=== PATIENT | female | born 1945 | race Caucasian/White ===

== ENCOUNTER 2018-11-19 11:50 | Emergency (ER) | payer MEDICARE ==
[2018-11-19 11:56] VITALS: TEMP 97.9
[2018-11-19] MEDS ORDERED: SODIUM CHLORIDE 0.9% 1,000 ML IV STA (12:11)
--- NOTE | 2018-11-19 13:08 | ED ---
General Adult HPI - General Chief complaint: Shortness of Breath Stated complaint: BLANKA/fever Time Seen by Provider: 11/19/18 12:03 Source: patient, RN notes reviewed Mode of arrival: wheelchair Limitations: no limitations - History of Present Illness Initial comments: Patient 73-year-old female presenting to the emergency room today with a chief complaint of cough congestion over the last 5 days. Patient does admit that over the weekend she was running a fever. States fever broke 2 days ago. Patient states that she still having some cough congestion. She states that she was having some production with the cough that was green. She states last day he has not been productive. She states she coughs she feels a burning sensation in her chest. Patient denies any other complaints or symptoms currently. Patient denies any recent short of breath, chest pain, back pain, abdominal pain, nausea or vomiting, numbness or tingling, headaches or visual changes, or any other complaints. - Related Data Home Medications Medication Instructions Recorded Confirmed Metoprolol Tartrate 25 mg PO BID 11/19/18 11/19/18 Simvastatin [Zocor] 20 mg PO HS 11/19/18 11/19/18 Venlafaxine HCl ER [Effexor Xr] 150 mg PO DAILY 11/19/18 11/19/18 Previous Rx's Medication Instructions Recorded Sulfamethox-Tmp 800-160Mg [Bactrim 1 tab PO Q12HR #20 tab 11/19/18 DS 800-160 mg] Allergies Allergy/AdvReac Type Severity Reaction Status Date / Time aspirin Allergy Unknown Verified 11/19/18 12:31 naproxen [From Naprosyn] Allergy Unknown Verified 11/19/18 12:31 STEROIDS Allergy Unknown Uncoded 11/19/18 11:57 Review of Systems ROS Statement: Those systems with pertinent positive or pertinent negative responses have been documented in the HPI. ROS Other: All systems not noted in ROS Statement are negative. Past Medical History Past Medical History: Hyperlipidemia, Hypertension, Renal Disease History of Any Multi-Drug Resistant Organisms: None Reported Past Surgical History: Appendectomy, Tubal Ligation Past Psychological History: Depression Smoking Status: Never smoker Past Alcohol Use History: None Reported Past Drug Use History: None Reported General Exam - General Exam Comments Initial Comments: General: The patient is awake and alert, in no distress, and does not appear acutely ill. Eye: There is normal conjunctiva bilaterally. No signs of icterus. Ears, nose, mouth and throat: There are moist mucous membranes and no oral lesions. Neck: The neck is supple, there is no tenderness or JVD. Cardiovascular: There is a regular rate and rhythm. No murmur, rub or gallop is appreciated. Respiratory: Lungs are clear to auscultation, respirations are non-labored, breath sounds are equal. No wheezes, stridor, rales, or rhonchi. Musculoskeletal: Normal ROM, no tenderness. Strength 5/5. Sensation intact. Radial/pedal Pulses equal bilaterally 2+. Neurological: A&O x 3. CN II-XII intact, There are no obvious motor or sensory deficits. Coordination appears grossly intact. Speech is normal. Skin: Skin is warm and dry and no rashes or lesions are noted. Psychiatric: Cooperative, appropriate mood & affect, normal judgment. Limitations: no limitations Course Vital Signs 11/19/18 11/19/18 11/19/18 11:53 13:08 13:15 Temperature 97.9 F Pulse Rate 99 79 Respiratory 20 16 18 Rate Blood Pressure 130/83 162/92 O2 Sat by Pulse 100 98 Oximetry EKG Findings - EKG Comments: EKG Findings:: EKG performed at 1223: Shows normal sinus rhythm at 90 bpm. ER 154. QRS 88. QT/QTC 388/474. No acute ST changes. Medical Decision Making - Medical Decision Making Patient's chest x-ray reviewed is negative for any acute abnormality. Results were discussed with the patient. Patient's EKG shows normal sinus rhythm. She has had cough congestion for the past 3 days. She describes burning sensation after she coughs in the chest. She did have some sputum production a few days ago. Patient's symptoms are consistent with bronchitis. Patient's vitals are stable here patient's labs reviewed and does show evidence for urinary tract infection. Remaining labs unremarkable. Patient will be placed on Bactrim to cover for bronchitis and UTI. Patient will be discharged home to follow-up family doctor. She states understanding and is in agreement with plan. - Lab Data Result diagrams: 11/19/18 12:52 11/19/18 12:52 Lab Results 11/19/18 11/19/18 11/19/18 Range/Units 12:52 12:52 12:52 WBC 3.5 L (3.8-10.6) k/uL RBC 5.24 (3.80-5.40) m/uL Hgb 16.0 (11.4-16.0) gm/dL Hct 48.0 H (34.0-46.0) % MCV 91.6 (80.0-100.0) fL MCH 30.5 (25.0-35.0) pg MCHC 33.3 (31.0-37.0) g/dL RDW 12.3 (11.5-15.5) % Plt Count 147 L (150-450) k/uL Neutrophils % 44 % Lymphocytes % 41 % Monocytes % 10 % Eosinophils % 2 % Basophils % 0 % Neutrophils # 1.6 (1.3-7.7) k/uL Lymphocytes # 1.5 (1.0-4.8) k/uL Monocytes # 0.4 (0-1.0) k/uL Eosinophils # 0.1 (0-0.7) k/uL Basophils # 0.0 (0-0.2) k/uL PT (9.0-12.0) sec INR (<1.2) APTT (22.0-30.0) sec Sodium 140 (137-145) mmol/L Potassium 3.9 (3.5-5.1) mmol/L Chloride 101 (98-107) mmol/L Carbon Dioxide 29 (22-30) mmol/L Anion Gap 10 mmol/L BUN 18 H (7-17) mg/dL Creatinine 1.20 H (0.52-1.04) mg/dL Est GFR (CKD-EPI)AfAm 52 (>60 ml/min/1.73 sqM) Est GFR (CKD-EPI)NonAf 45 (>60 ml/min/1.73 sqM) Glucose 90 (74-99) mg/dL Calcium 9.7 (8.4-10.2) mg/dL Total Bilirubin 0.6 (0.2-1.3) mg/dL AST 32 (14-36) U/L ALT 26 (9-52) U/L Alkaline Phosphatase 75 (38-126) U/L Total Creatine Kinase 40 (30-135) U/L CK-MB (CK-2) 0.5 (0.0-2.4) ng/mL CK-MB (CK-2) Rel Index 1.3 Troponin I <0.012 (0.000-0.034) ng/mL Total Protein 7.8 (6.3-8.2) g/dL Albumin 4.5 (3.5-5.0) g/dL Urine Color Urine Appearance (Clear) Urine pH (5.0-8.0) Ur Specific Cantil (1.001-1.035) Urine Protein (Negative) Urine Glucose (UA) (Negative) Urine Ketones (Negative) Urine Blood (Negative) Urine Nitrite (Negative) Urine Bilirubin (Negative) Urine Urobilinogen (<2.0) mg/dL Ur Leukocyte Esterase (Negative) Urine RBC (0-5) /hpf Urine WBC (0-5) /hpf Ur Squamous Epith Cells (0-4) /hpf Urine Bacteria (None) /hpf Hyaline Casts (0-2) /lpf Urine Mucus (None) /hpf 11/19/18 11/19/18 Range/Units 12:52 12:52 WBC (3.8-10.6) k/uL RBC (3.80-5.40) m/uL Hgb (11.4-16.0) gm/dL Hct (34.0-46.0) % MCV (80.0-100.0) fL MCH (25.0-35.0) pg MCHC (31.0-37.0) g/dL RDW (11.5-15.5) % Plt Count (150-450) k/uL Neutrophils % % Lymphocytes % % Monocytes % % Eosinophils % % Basophils % % Neutrophils # (1.3-7.7) k/uL Lymphocytes # (1.0-4.8) k/uL Monocytes # (0-1.0) k/uL Eosinophils # (0-0.7) k/uL Basophils # (0-0.2) k/uL PT 9.4 (9.0-12.0) sec INR 0.9 (<1.2) APTT 24.3 (22.0-30.0) sec Sodium (137-145) mmol/L Potassium (3.5-5.1) mmol/L Chloride (98-107) mmol/L Carbon Dioxide (22-30) mmol/L Anion Gap mmol/L BUN (7-17) mg/dL Creatinine (0.52-1.04) mg/dL Est GFR (CKD-EPI)AfAm (>60 ml/min/1.73 sqM) Est GFR (CKD-EPI)NonAf (>60 ml/min/1.73 sqM) Glucose (74-99) mg/dL Calcium (8.4-10.2) mg/dL Total Bilirubin (0.2-1.3) mg/dL AST (14-36) U/L ALT (9-52) U/L Alkaline Phosphatase (38-126) U/L Total Creatine Kinase (30-135) U/L CK-MB (CK-2) (0.0-2.4) ng/mL CK-MB (CK-2) Rel Index Troponin I (0.000-0.034) ng/mL Total Protein (6.3-8.2) g/dL Albumin (3.5-5.0) g/dL Urine Color Yellow Urine Appearance Cloudy H (Clear) Urine pH 5.0 (5.0-8.0) Ur Specific Cantil 1.013 (1.001-1.035) Urine Protein Trace H (Negative) Urine Glucose (UA) Negative (Negative) Urine Ketones Negative (Negative) Urine Blood Trace H (Negative) Urine Nitrite Negative (Negative) Urine Bilirubin Negative (Negative) Urine Urobilinogen <2.0 (<2.0) mg/dL Ur Leukocyte Esterase Large H (Negative) Urine RBC 5 (0-5) /hpf Urine WBC 25 H (0-5) /hpf Ur Squamous Epith Cells 5 H (0-4) /hpf Urine Bacteria Occasional H (None) /hpf Hyaline Casts 1 (0-2) /lpf Urine Mucus Rare H (None) /hpf Disposition Clinical Impression: Acute bronchitis, UTI (urinary tract infection) Disposition: HOME SELF-CARE Condition: Good Instructions: Acute Bronchitis (ED) Additional Instructions: Please use medication as discussed. Please follow-up with family doctor in the next 2 days of symptoms have not improved. Please return to emergency room if the symptoms increase or worsen or for any other concerns. Prescriptions: Sulfamethox-Tmp 800-160Mg [Bactrim DS 800-160 mg] 1 tab PO Q12HR #20 tab Is patient prescribed a controlled substance at d/c from ED?: No Referrals: Faraz Sotelo MD [Primary Care Provider] - 1-2 days Time of Disposition: 14:48
[2018-11-19 13:17] VITALS: RESP 18
--- NOTE | 2018-11-19 13:18 | XR ---
EXAMINATION TYPE: XR chest 2V DATE OF EXAM: 11/19/2018 COMPARISON: NONE HISTORY: Cough, congestion, and fever for 5 days. TECHNIQUE: Frontal and lateral views of the chest are obtained. FINDINGS: There is no focal air space opacity, pleural effusion, or pneumothorax seen. The cardiac silhouette size is within normal limits. The osseous structures are intact. IMPRESSION: No suspicious acute pulmonary process.
[2018-11-19 13:55] LABS: Basophils % (A) 0 %; Eosinophils # (A) 0.1 k/uL (0-0.7); Eosinophils % (A) 2 %; Lymphocytes # (A) 1.5 k/uL (1.0-4.8); Lymphocytes % (A) 41 %; MCH 30.5 pg (25.0-35.0); MCHC 33.3 g/dL (31.0-37.0); MCV 91.6 fL (80.0-100.0); Mean Platelet Volume 8.3; Monocytes # (A) 0.4 k/uL (0-1.0); Monocytes % (A) 10 %; Neutrophils # (A) 1.6 k/uL (1.3-7.7); Neutrophils % (A) 44 %; Platelet Count 147 k/uL (150-450); RBC 5.24 m/uL (3.80-5.40); RDW 12.3 % (11.5-15.5); WBC 3.5 k/uL (3.8-10.6)
[2018-11-19 14:02] LABS: INR 0.9 (<1.2); Prothrombin Time 9.4 sec (9.0-12.0)
[2018-11-19 14:03] LABS: Partial Thromboplastin Time 24.3 sec (22.0-30.0)
[2018-11-19 14:04] LABS: Appearance,Urine Cloudy (Clear); Bacteria,Urine Occasional /hpf; Bilirubin,Urine Negative (Negative); Blood,Urine Trace (Negative); Color,Urine Yellow; Glucose,Urine (UA) Negative (Negative); Hyaline Casts,Urine 1 /lpf (0-2); Ketones,Urine Negative (Negative); Leukocyte Esterase,Urine Large (Negative); Mucus,Urine Rare /hpf; Nitrite,Urine Negative (Negative); Protein,Urine Trace (Negative); RBC,Urine 5 /hpf (0-5); Specific Gravity,Urine 1.013 (1.001-1.035); Squamous Epithelial Cell,Urine 5 /hpf (0-4); Urobilinogen,Urine <2.0 mg/dL (<2.0)
[2018-11-19 14:20] LABS: Albumin 4.5 g/dL (3.5-5.0); Calcium 9.7 mg/dL (8.4-10.2); Potassium 3.9 mmol/L (3.5-5.1); Total Bilirubin 0.6 mg/dL (0.2-1.3); Total Protein 7.8 g/dL (6.3-8.2)
[2018-11-19 14:26] LABS: Creatine Kinase 40 U/L (30-135)
[2018-11-19 14:37] LABS: Creatine Kinase MB 0.5 ng/mL (0.0-2.4); Troponin I <0.012 ng/mL (0.000-0.034)
[2018-11-19 15:01] VITALS: BP 149/79; PULSE 77
== END 2018-11-19 14:55 | disposition home or self-care (01) ==
LOC: EC 11:50
DX: J20.9 Acute bronchitis, unspecified (principal); N39.0 Urinary tract infection, site not specified; E78.5 Hyperlipidemia, unspecified; I10 Essential (primary) hypertension; F32.9 Major depressive disorder, single episode, unspecified; Z88.6 Allergy status to analgesic agent; Z88.8 Allergy status to other drugs, medicaments and biological substances; Z79.899 Other long term (current) drug therapy; Z90.49 Acquired absence of other specified parts of digestive tract; Z98.51 Tubal ligation status
CPT/HCPCS: 36415; 71046; 80053; 81001; 82550; 82553; 84484; 85025; 85610; 85730; 87086; 93005; 96360; 99285

== ENCOUNTER → 2020-06-23 | Outpatient (CLI) | payer MEDICARE ==
[2020-06-23 13:53] LABS: HCT 41.3 % (34.0-46.0); HGB 13.2 gm/dL (11.4-16.0); MCH 30.3 pg (25.0-35.0); MCHC 31.9 g/dL (31.0-37.0); MCV 94.8 fL (80.0-100.0); Mean Platelet Volume 8.7; Platelet Count 158 k/uL (150-450); RBC 4.35 m/uL (3.80-5.40); RDW 12.2 % (11.5-15.5); WBC 6.2 k/uL (3.8-10.6)
[2020-06-23 21:06] LABS: African American GFR (CKD) 51.6 (60.0-200.0); Albumin 4.3 g/dL (3.80-4.90); Albumin/Globulin Ratio 2.05 (1.60-3.17); Anion Gap 7.9 mmol/L (4.00-12.00); BUN/Creat Ratio 19.17 Ratio (12.00-20.00); Calcium 9.9 mg/dL (8.7-10.3); Carbon Dioxide 29.1 mmol/L (21.6-31.8); Globulin 2.1 g/dL (1.6-3.3); Non-African American GFR(CKD) 44.5 (60.0-200.0); Potassium 4.9 mmol/L (3.5-5.5); Total Bilirubin 0.5 mg/dL (0.3-1.2); Total Protein 6.4 g/dL (6.2-8.2)
== END | disposition home or self-care (01) ==
LOC: LABWHC1 12:04
PROVIDERS: ATTEND Family Medicine
DX: I12.9 Hypertensive chronic kidney disease with stage 1 through stage 4 chronic kidney disease, or unspecified chronic kidney disease (principal); N18.3 Chronic kidney disease, stage 3 (moderate)
CPT/HCPCS: 36415; 80053; 83970; 85027

== ENCOUNTER 2020-07-30 12:44 | Emergency (ER) | payer MEDICARE ==
[2020-07-30 12:49] VITALS: TEMP 98
--- NOTE | 2020-07-30 13:04 | ED ---
Chest Pain HPI - General Chief Complaint: Chest Pain Stated Complaint: chest pain Time Seen by Provider: 07/30/20 12:50 Source: patient, RN notes reviewed, old records reviewed Mode of arrival: wheelchair Limitations: no limitations - History of Present Illness Initial Comments: This is a 74-year-old female with no prior history of heart disease who states she had the onset about one half hour prior to arrival sharp left-sided chest pain. Moderate in severity does not seem to get worse with deep breathing cough. She's had no fevers chills sweats or phlegm production. She states she stays in bed sleeping quite a bit. She does have a history hypertension and chronic kidney disease. Is easily to pain worse or better she does states that this morning she had heartburn like pain and when away from her upper chest on her stomach lasted for a period time and this is since resolved. She does relate that the heartburn type pain started after an cranberry use yesterday she had a burning feeling going from her throat down her stomach. 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 07/30/20 Allergies Allergy/AdvReac Type Severity Reaction Status Date / Time aspirin Allergy Unknown Verified 07/30/20 12:45 naproxen [From Naprosyn] Allergy Unknown Verified 07/30/20 12:45 STEROIDS Allergy Unknown Uncoded 07/30/20 12:45 Review of Systems ROS Statement: Those systems with pertinent positive or pertinent negative responses have been documented in the HPI. ROS Other: All systems not noted in ROS Statement are negative. EKG Findings - EKG Results: EKG: interpreted by ENEIDA, sinus rhythm (Sinus rhythm with sinus arrhythmia the rate was 81. Interval 150 to QRS 80 QT since QTC 392/[address]-T wave changes seen at this time) Past Medical History Past Medical History: Hyperlipidemia, Hypertension, Renal Disease History of Any Multi-Drug Resistant Organisms: None Reported Past Surgical History: Appendectomy, Tubal Ligation Past Psychological History: Depression Smoking Status: Never smoker Past Alcohol Use History: None Reported Past Drug Use History: None Reported General Exam - General Exam Comments Initial Comments: This is a well-developed well-nourished awake alert oriented 3 female Limitations: no limitations General appearance: alert, anxious Head exam: Present: atraumatic, normocephalic, normal inspection Eye exam: Present: normal appearance, PERRL, EOMI. Absent: scleral icterus, con junctival injection, periorbital swelling ENT exam: Present: normal exam, mucous membranes moist Neck exam: Present: normal inspection, full ROM, other (No stridor JVD or bruits). Absent: tenderness, meningismus, lymphadenopathy Respiratory exam: Present: normal lung sounds bilaterally, chest wall tenderness (Tenderness palpation on the left costosternal margin this does reproduce some of the pain that the heartburn like pain however. Is no step-off or crepitation). Absent: respiratory distress, wheezes, rales, rhonchi, stridor Cardiovascular Exam: Present: regular rate, normal rhythm, normal heart sounds. Absent: systolic murmur, diastolic murmur, rubs, gallop, clicks GI/Abdominal exam: Present: soft, normal bowel sounds. Absent: distended, tenderness, guarding, rebound, rigid Extremities exam: Present: normal inspection, full ROM, normal capillary refill. Absent: tenderness, pedal edema, joint swelling, calf tenderness Back exam: Present: normal inspection Neurological exam: Present: alert, oriented X3, CN II-XII intact Psychiatric exam: Present: normal affect, normal mood Skin exam: Present: warm, dry, intact, normal color. Absent: rash Course Vital Signs 07/30/20 12:45 Temperature 98 F Pulse Rate 98 Respiratory 18 Rate Blood Pressure 133/76 O2 Sat by Pulse 100 Oximetry - Reevaluation(s) Reevaluation #1: 07/30/20 14:29 The patient states she did get improvement with her GI cocktail. She still has reproducibility to the left chest pain. Chest Pain MDM - MDM I did review the imaging and report no acute findings. The patient is feeling improved after GI cocktail she does still have left reproducible chest pain. The presentation is consistent with costochondritis as well as esophagitis. Patient will be discharged I did recommend follow-up with her doctor. She has had prior cardiac stress test and passed some she states she'll flank color. We did discuss return parameters. Disposition Clinical Impression: Costochondritis, Chest wall syndrome, Esophagitis Disposition: HOME SELF-CARE Condition: Good Instructions (If sedation given, give patient instructions): Costochondritis (ED), Esophagitis (ED) Additional Instructions: Tylenol for pain Prescriptions: Pantoprazole Sodium [Protonix] 20 mg PO DAILY #7 tablet.dr Is patient prescribed a controlled substance at d/c from ED?: No Referrals: Faraz Sotelo MD [Primary Care Provider] - 1-2 days
[2020-07-30 13:20] LABS: Basophils % (A) 0 %; Eosinophils # (A) 0.3 k/uL (0-0.7); Eosinophils % (A) 5 %; HCT 42.7 % (34.0-46.0); HGB 14.1 gm/dL (11.4-16.0); Lymphocytes # (A) 1.8 k/uL (1.0-4.8); Lymphocytes % (A) 33 %; MCH 30.6 pg (25.0-35.0); MCHC 33.1 g/dL (31.0-37.0); MCV 92.4 fL (80.0-100.0); Mean Platelet Volume 8.4; Monocytes # (A) 0.3 k/uL (0-1.0); Monocytes % (A) 5 %; Neutrophils % (A) 56 %; Platelet Count 153 k/uL (150-450); RBC 4.62 m/uL (3.80-5.40); RDW 12.2 % (11.5-15.5); WBC 5.4 k/uL (3.8-10.6)
[2020-07-30 13:28] LABS: Albumin 4.1 g/dL (3.5-5.0); Calcium 10.2 mg/dL (8.4-10.2); Potassium 4.6 mmol/L (3.5-5.1); Total Bilirubin 0.5 mg/dL (0.2-1.3); Total Protein 6.5 g/dL (6.3-8.2)
[2020-07-30 13:32] LABS: D-Dimer 0.38 mg/L FEU (<0.60); INR 0.9 (<1.2); Partial Thromboplastin Time 23.1 sec (22.0-30.0); Prothrombin Time 9.7 sec (9.0-12.0)
--- NOTE | 2020-07-30 13:34 | XR ---
EXAMINATION TYPE: XR chest 2V DATE OF EXAM: 07/30/2020 COMPARISON: 11/19/2018 HISTORY: 74-year-old female with chest pain TECHNIQUE: PA and lateral views FINDINGS: The cardiomediastinal silhouette, aorta, and pulmonary vasculature are within normal limits. Lungs an d pleural spaces are clear. IMPRESSION: No acute cardiopulmonary process.
[2020-07-30] MEDS ORDERED: MAG HYDROX/AL HYDROX/SIMETH 30 ML, HYOSCYAMINE ELIXIR 10 ML PO STA ×2 (14:06)
[2020-07-30] MEDS ORDERED: PANTOPRAZOLE 40 MG TABLET PO STA (14:33)
[2020-07-30] MEDS ORDERED: ACETAMINOPHEN TAB 500 MG TAB PO STA (14:33)
[2020-07-30 15:15] VITALS: BP 138/70; PULSE 80; RESP 16
== END 2020-07-30 15:15 | disposition home or self-care (01) ==
LOC: EC 12:44
DX: M94.0 Chondrocostal junction syndrome [Tietze] (principal); K20.9 Esophagitis, unspecified; I12.9 Hypertensive chronic kidney disease with stage 1 through stage 4 chronic kidney disease, or unspecified chronic kidney disease; N18.9 Chronic kidney disease, unspecified; E78.5 Hyperlipidemia, unspecified; F32.9 Major depressive disorder, single episode, unspecified; Z79.899 Other long term (current) drug therapy; Z88.8 Allergy status to other drugs, medicaments and biological substances; Z88.6 Allergy status to analgesic agent
CPT/HCPCS: 36415; 71046; 80053; 82550; 83735; 83880; 84484; 85025; 85379; 85610; 85730; 93005; 99285

== ENCOUNTER → 2021-02-10 | Outpatient (CLI) | payer MEDICARE ==
[2021-02-10 16:28] LABS: Appearance,Urine Clear (Clear); Bacteria,Urine Rare /hpf; Bilirubin,Urine Negative (Negative); Blood,Urine Negative (Negative); Color,Urine Light Yellow; Glucose,Urine (UA) Negative (Negative); Ketones,Urine Negative (Negative); Leukocyte Esterase,Urine Moderate (Negative); Nitrite,Urine Negative (Negative); Protein,Urine Negative (Negative); RBC,Urine <1 /hpf (0-5); Specific Gravity,Urine 1.006 (1.001-1.035); Squamous Epithelial Cell,Urine 3 /hpf (0-4); Urobilinogen,Urine <2.0 mg/dL (<2.0); WBC,Urine 1 /hpf (0-5)
[2021-02-11 03:50] LABS: African American GFR (CKD) 51.2 (60.0-200.0); Albumin 4.8 g/dL (3.80-4.90); Albumin/Globulin Ratio 2.29 (1.60-3.17); BUN/Creat Ratio 19.17 Ratio (12.00-20.00); Calcium 10.4 mg/dL (8.7-10.3); Chol/HDL Ratio 3.07; Globulin 2.1 g/dL (1.6-3.3); LDL Cholesterol,Calculated 84.4 mg/dL (0.0-131.0); Non-African American GFR(CKD) 44.2 (60.0-200.0); Potassium 4.6 mmol/L (3.5-5.5); Total Bilirubin 0.8 mg/dL (0.2-1.2); Total Protein 6.9 g/dL (6.2-8.2); VLDL Calculation 29.6 mg/dL (5.00-40.00)
== END | disposition home or self-care (01) ==
LOC: LABWHC1 15:22
PROVIDERS: ATTEND Family Medicine
DX: I12.9 Hypertensive chronic kidney disease with stage 1 through stage 4 chronic kidney disease, or unspecified chronic kidney disease (principal); N18.30 Chronic kidney disease, stage 3 unspecified; R82.90 Unspecified abnormal findings in urine
CPT/HCPCS: 36415; 80053; 80061; 81001; 83970; 87086

== ENCOUNTER → 2022-05-10 | Outpatient (CLI) | payer MEDICARE ==
[2022-05-10 19:31] LABS: HCT 43.6 % (37.2-46.3); HGB 13.8 g/dL (12.0-15.0); MCH 29.2 pg (27.0-32.0); MCHC 31.7 g/dL (32.0-37.0); MCV 92.2 fL (80.0-97.0); Mean Platelet Volume 11.7 fL (9.5-12.2); NRBC Per 100 WBC 0 /100 WBCS (0.0-0.0); Phosphorus 3.1 mg/dL (2.4-5.1); Platelet Count 192 X 10*3/uL (140-440); RBC 4.73 X 10*6/uL (4.10-5.20); RDW 11.8 % (11.5-14.5); WBC 6.44 X 10*3/uL (4.50-10.00)
== END | disposition home or self-care (01) ==
LOC: LABWHC1 13:33
PROVIDERS: ATTEND Family Medicine
DX: E78.01 Familial hypercholesterolemia (principal)
CPT/HCPCS: 36415; 82306; 83970; 84100; 84443; 85027

== ENCOUNTER 2022-08-17 02:03 | Inpatient (IN) | payer MEDICARE ==
[2022-08-17] MEDS ORDERED: SODIUM CHLORIDE 0.9% 1,000 ML IV STA (02:05)
--- NOTE | 2022-08-17 02:37 | CT ---
EXAMINATION TYPE: CT brain wo con for TPA DATE OF EXAM: 08/17/2022 COMPARISON: None HISTORY: LEFT SIDED WEAKNESS CT DLP: 1475 mGycm Automated exposure control for dose reduction was used. Images obtained of the brain with no contrast. Ventricles have normal size. There is no mass effect or midline shift. No sign of intracranial hemorr rain. Calvarium is intact. No evidence of cerebral edema. IMPRESSION: Head CT scan appears normal for age.
[2022-08-17 02:38] LABS: Glucose,Whole Blood 138 mg/dL (70-110)
--- NOTE | 2022-08-17 02:39 | XR ---
EXAMINATION TYPE: XR chest 1V portable DATE OF EXAM: 08/17/2022 COMPARISON: 07/30/2020 HISTORY: Altered mental status TECHNIQUE: FINDINGS: Heart is normal. Lungs are clear of infiltrate. No heart failure. There are no hilar masses . Costophrenic angles are clear. Bony thorax is intact. IMPRESSION: No active cardiopulmonary disease. Normal heart. No change.
[2022-08-17] MEDS ORDERED: SODIUM CHLORIDE 0.9% 1,000 ML IV SCH (02:45)
[2022-08-17] MEDS: ASPIRIN 325 MG TAB PO STA ×2 (02:45→02:50)
--- NOTE | 2022-08-17 02:45 | ED ---
General Adult HPI - General Stated complaint: Alteplase Time Seen by Provider: 08/17/22 02:05 Source: patient, EMS, RN notes reviewed, old records reviewed Limitations: no limitations - History of Present Illness Initial comments: 76-year-old female presenting with acute onset left-sided weakness. Patient apparently had speech abnormality upon urban sociologist arrival but this has resolved. Her symptoms began around 1:30 AM with wake up. She went to bed at 10 PM this was her last known well. no previous history of CVA or TIA. - Related Data Home Medications Medication Instructions Recorded Confirmed Metoprolol Tartrate 25 mg PO BID 11/19/18 07/30/20 Simvastatin [Zocor] 20 mg PO HS 11/19/18 07/30/20 Venlafaxine HCl ER [Effexor Xr] 150 mg PO DAILY 11/19/18 07/30/20 Acetaminophen Tab [Tylenol Tab] 1,000 mg PO Q6HR PRN 07/30/20 07/30/20 Previous Rx's Medication Instructions Recorded Pantoprazole Sodium [Protonix] 20 mg PO DAILY #7 tablet. 07/30/20 Allergies Allergy/AdvReac Type Severity Reaction Status Date / Time aspirin Allergy Unknown Verified 07/30/20 14:37 naproxen [From Naprosyn] Allergy Unknown Verified 07/30/20 14:37 STEROIDS Allergy Unknown Uncoded 07/30/20 12:45 Review of Systems ROS Statement: Those systems with pertinent positive or pertinent negative responses have been documented in the HPI. ROS Other: All systems not noted in ROS Statement are negative. Past Medical History Past Medical History: Hyperlipidemia, Hypertension, Renal Disease History of Any Multi-Drug Resistant Organisms: None Reported Past Surgical History: Appendectomy, Tubal Ligation Past Psychological History: Depression Smoking Status: Never smoker Past Alcohol Use History: None Reported Past Drug Use History: None Reported General Exam General appearance: alert, in no apparent distress Head exam: Present: atraumatic, normocephalic Eye exam: Present: normal appearance, PERRL ENT exam: Present: normal exam Neck exam: Present: normal inspection. Absent: tenderness, meningismus Respiratory exam: Present: normal lung sounds bilaterally. Absent: respiratory distress, wheezes Cardiovascular Exam: Present: regular rate, normal rhythm GI/Abdominal exam: Present: soft. Absent: distended, tenderness Extremities exam: Present: normal inspection, normal capillary refill. Absent: pedal edema Neurological exam: Present: alert, oriented X3, motor sensory deficit (left facial droop, left upper extremity drift, NIH is 4). Absent: CN II-XII intact Psychiatric exam: Present: normal affect, normal mood Skin exam: Present: warm, dry, intact Course Vital Signs 08/17/22 02:03 Temperature 97.8 F Respiratory 18 Rate Blood Pressure 138/87 O2 Sat by Pulse 100 Oximetry - Reevaluation(s) Reevaluation #1: 08/17/22 04:01 patient reevaluated, NIH of 1 Reevaluation #2: 08/17/[address] Cope, not a TPA candidate secondary to low NIH, improving symptoms. this was discussed at 4 hours and 35 minutes after last known well. EKG Findings - EKG Comments: EKG Findings:: EKG: Sinus rhythm, low voltage, rate of 89, NM interval 161, QRS duration 82, QTC 416 Medical Decision Making - Medical Decision Making 76-year-old female with symptoms concerning for acute CVA. Head CT and CT angiography are negative. Laboratory testing is essentially unremarkable. Patient is not a TPA candidate secondary to low NIH and improving symptoms. The stroke neurologist recommends aspirin, statin and permissive hypertension. Patient's symptoms do significantly improve while in the emergency department. - Lab Data Result diagrams: 08/17/22 02:30 08/17/22 02:30 Lab Results 08/17/22 08/17/22 08/17/22 Range/Units 02:30 02:30 02:30 WBC 4.9 (3.8-10.6) k/uL RBC 4.39 (3.80-5.40) m/uL Hgb 13.1 (11.4-16.0) gm/dL Hct 41.4 (34.0-46.0) % MCV 94.2 (80.0-100.0) fL MCH 29.8 (25.0-35.0) pg MCHC 31.6 (31.0-37.0) g/dL RDW 12.4 (11.5-15.5) % Plt Count 150 (150-450) k/uL MPV 8.6 Neutrophils % 63 % Lymphocytes % 25 % Monocytes % 7 % Eosinophils % 2 % Basophils % 1 % Neutrophils # 3.1 (1.3-7.7) k/uL Lymphocytes # 1.2 (1.0-4.8) k/uL Monocytes # 0.4 (0-1.0) k/uL Eosinophils # 0.1 (0-0.7) k/uL Basophils # 0.0 (0-0.2) k/uL PT 10.5 (9.0-12.0) sec INR 1.0 (<1.2) APTT 22.8 (22.0-30.0) sec Sodium 137 (137-145) mmol/L Potassium 4.2 (3.5-5.1) mmol/L Chloride 103 (98-107) mmol/L Carbon Dioxide 24 (22-30) mmol/L Anion Gap 10 mmol/L BUN 24 H (7-17) mg/dL Creatinine 1.22 H (0.52-1.04) mg/dL Est GFR (CKD-EPI)AfAm 50 (>60 ml/min/1.73 sqM) Est GFR (CKD-EPI)NonAf 43 (>60 ml/min/1.73 sqM) Glucose 126 H (74-99) mg/dL POC Glucose (mg/dL) (70-110) mg/dL POC Glu Hydrochloric Area Supervisor ID Calcium 9.6 (8.4-10.2) mg/dL Total Bilirubin 0.4 (0.2-1.3) mg/dL AST 21 (14-36) U/L ALT 12 (4-34) U/L Alkaline Phosphatase 94 (38-126) U/L Troponin I (0.000-0.034) ng/mL Total Protein 6.1 L (6.3-8.2) g/dL Albumin 3.7 (3.5-5.0) g/dL 08/17/22 08/17/22 Range/Units 02:30 02:36 WBC (3.8-10.6) k/uL RBC (3.80-5.40) m/uL Hgb (11.4-16.0) gm/dL Hct (34.0-46.0) % MCV (80.0-100.0) fL MCH (25.0-35.0) pg MCHC (31.0-37.0) g/dL RDW (11.5-15.5) % Plt Count (150-450) k/uL MPV Neutrophils % % Lymphocytes % % Monocytes % % Eosinophils % % Basophils % % Neutrophils # (1.3-7.7) k/uL Lymphocytes # (1.0-4.8) k/uL Monocytes # (0-1.0) k/uL Eosinophils # (0-0.7) k/uL Basophils # (0-0.2) k/uL PT (9.0-12.0) sec INR (<1.2) APTT (22.0-30.0) sec Sodium (137-145) mmol/L Potassium (3.5-5.1) mmol/L Chloride (98-107) mmol/L Carbon Dioxide (22-30) mmol/L Anion Gap mmol/L BUN (7-17) mg/dL Creatinine (0.52-1.04) mg/dL Est GFR (CKD-EPI)AfAm (>60 ml/min/1.73 sqM) Est GFR (CKD-EPI)NonAf (>60 ml/min/1.73 sqM) Glucose (74-99) mg/dL POC Glucose (mg/dL) 138 H (70-110) mg/dL POC Glu Hydrochloric Area Supervisor ID Patricio Hernandez Calcium (8.4-10.2) mg/dL Total Bilirubin (0.2-1.3) mg/dL AST (14-36) U/L ALT (4-34) U/L Alkaline Phosphatase (38-126) U/L Troponin I <0.012 (0.000-0.034) ng/mL Total Protein (6.3-8.2) g/dL Albumin (3.5-5.0) g/dL Critical Care Time Critical Care Time: Yes Total Critical Care Time: 35 Disposition Clinical Impression: Cerebrovascular accident (CVA) Disposition: ADMITTED IP TO THIS HOSP Condition: Stable Is patient prescribed a controlled substance at d/c from ED?: No Referrals: None,Stated [REFERRING] - 1-2 days Time of Disposition: 04:03
--- NOTE | 2022-08-17 02:46 | CT ---
EXAMINATION TYPE: CT angio head neck DATE OF EXAM: 08/17/2022 COMPARISON: None HISTORY: LEFT SIDED WEAKNESS. CT DLP: 1475 mGycm Automated exposure control for dose reduction was used. CONTRAST: Performed with IV Contrast, patient injected with 65 mL of Isovue 370. Images obtained from the aortic arch to the vertex of the brain with the IV contrast. There are Three-D postprocessed images. There is normal branching pattern of the great vessels on the aortic arch. There is bilateral arteria l flow in the subclavian arteries. There is arterial flow in the common internal and external cardiac arteries bilaterally. There is wide patency of the carotid artery bifurcations. There is arterial fl ow in both vertebral arteries which appear widely patent there is arterial flow in the vertebrobasila r artery system. There is no evidence of carotid or vertebral artery aneurysm or dissection. There is arterial flow in the anterior middle and posterior cerebral arteries bilaterally. There is n o mass effect. No evidence of intracranial aneurysm or neovascularity. No evidence of intracranial ar terial stenosis. There is normal enhancement of the venous sinuses. IMPRESSION: Normal CT angiogram of the neck. Normal CT angiogram of the brain.
[2022-08-17 02:48] LABS: Basophils % (A) 1 %; Eosinophils # (A) 0.1 k/uL (0-0.7); Eosinophils % (A) 2 %; HCT 41.4 % (34.0-46.0); HGB 13.1 gm/dL (11.4-16.0); Lymphocytes # (A) 1.2 k/uL (1.0-4.8); Lymphocytes % (A) 25 %; MCH 29.8 pg (25.0-35.0); MCHC 31.6 g/dL (31.0-37.0); MCV 94.2 fL (80.0-100.0); Mean Platelet Volume 8.6; Monocytes # (A) 0.4 k/uL (0-1.0); Monocytes % (A) 7 %; Neutrophils # (A) 3.1 k/uL (1.3-7.7); Neutrophils % (A) 63 %; Platelet Count 150 k/uL (150-450); RBC 4.39 m/uL (3.80-5.40); RDW 12.4 % (11.5-15.5); WBC 4.9 k/uL (3.8-10.6)
[2022-08-17 03:00] LABS: Albumin 3.7 g/dL (3.5-5.0); Calcium 9.6 mg/dL (8.4-10.2); Potassium 4.2 mmol/L (3.5-5.1); Total Bilirubin 0.4 mg/dL (0.2-1.3); Total Protein 6.1 g/dL (6.3-8.2)
[2022-08-17 03:29] LABS: Partial Thromboplastin Time 22.8 sec (22.0-30.0); Prothrombin Time 10.5 sec (9.0-12.0)
[2022-08-17] MEDS ORDERED: ASPIRIN 300 MG SUPP RECTAL STA (03:44)
[2022-08-17] MEDS ORDERED: ASPIRIN 300 MG SUPP RECTAL SCH (09:00)
--- NOTE | 2022-08-17 11:18 | P.HPIM ---
History of Present Illness Patient is a 76-year-old female came in with comments of left sided weakness was started last night she woke up from sleep around her 2 AM found to have weakness in the left and slurred speech and deviation of the tongue 2 words left side. Patient to denied any previous history of strokes or heart attacks in the past. Patient has some numbness in the left arm as well denied any weakness in the left leg. Patient states that aspirin makes her have some upset although at that time patient was taking it for pain and and it was in combination with other pain pills. Patient denied any fever chills. Patient given an hour after she notices the symptoms but onset of symptoms is not known as this may have happened when she is sleeping because of which patient didn't receive TPA patient had a CT of the head and CT angiography head and neck which did not show any significant abnormality. Patient does have chronic kidney disease with baseline creatinine of around 1.2-1.4. Patient did have slurred speech as well REVIEW OF SYSTEMS: CONSTITUTIONAL: No fever, no malaise, no fatigue. HEENT: No recent visual problems or hearing problems. Denied any sore throat. CARDIOVASCULAR: No chest pain, orthopnea, PND, no palpitations, no syncope. PULMONARY: No shortness of breath, no cough, no hemoptysis. GASTROINTESTINAL: No diarrhea, no nausea, no vomiting, no abdominal pain. NEUROLOGICAL: No headaches. HEMATOLOGICAL: Denies any bleeding or petechiae. GENITOURINARY: Denies any burning micturition, frequency, or urgency. MUSCULOSKELETAL/RHEUMATOLOGICAL: Denies any joint pain, swelling, or any muscle pain. ENDOCRINE: Denies any polyuria or polydipsia. The rest of the 14-point review of systems is negative. PHYSICAL EXAMINATION: GENERAL: The patient is alert and oriented x3, not in any acute distress. Well developed, well nourished. HEENT: Pupils are round and equally reacting to light. EOMI. No scleral icterus. No conjunctival pallor. Normocephalic, atraumatic. No pharyngeal erythema. No thyromegaly. CARDIOVASCULAR: S1 and S2 present. No murmurs, rubs, or gallops. PULMONARY: Chest is clear to auscultation, no wheezing or crackles. ABDOMEN: Soft, nontender, nondistended, normoactive bowel sounds. No palpable organomegaly. MUSCULOSKELETAL: No joint swelling or deformity. EXTREMITIES: No cyanosis, clubbing, or pedal edema. NEUROLOGICAL: 4/5 strength in left upper extremity there is a tongue deviation towards left side and also facial droop towards right side and slurred speech SKIN: No rashes. Assessment and plan -Cerebrovascular accident involving the left-sided of the body, in the middle cerebral artery territory , superolateral surface of the brain, in the parietofrontal cortex ischemic in origin. Neurology will evaluate the patient patient will be started on aspirin will need another platelet, lipid panel is pending echocardiogram, MRI of pending CT of the head and neck as mentioned above. Physical therapy, occupational therapy consultation along with see speech therapy evaluation -Chronic kidney disease stage II probably hypertensive nephrosclerosis, her creatinine is at her baseline. -Hyperlipidemia DVT prophylaxis: Early ambulation Past Medical History Past Medical History: Hyperlipidemia, Hypertension, Renal Disease History of Any Multi-Drug Resistant Organisms: None Reported Past Surgical History: Appendectomy, Tubal Ligation Past Psychological History: Depression Smoking Status: Never smoker Past Alcohol Use History: None Reported Past Drug Use History: None Reported Medications and Allergies Home Medications Medication Instructions Recorded Confirmed Type Metoprolol Tartrate 25 mg PO HS 11/19/18 08/17/22 History Simvastatin [Zocor] 20 mg PO HS 11/19/18 08/17/22 History Venlafaxine HCl ER [Effexor Xr] 150 mg PO HS 11/19/18 08/17/22 History Venlafaxine HCl ER [Effexor Xr] 75 mg PO HS 08/17/22 08/17/22 History Allergies Allergy/AdvReac Type Severity Reaction Status Date / Time aspirin Allergy Unknown Verified 08/17/22 07:31 naproxen [From Naprosyn] Allergy Unknown Verified 08/17/22 07:31 STEROIDS Allergy Unknown Uncoded 08/17/22 07:31 Physical Exam Vitals: Vital Signs Temp Pulse Resp BP Pulse Ox 08/17/22 10:00 79 15 161/80 08/17/22 09:30 76 15 164/76 08/17/22 08:30 78 16 151/72 100 08/17/22 08:00 74 15 153/83 99 08/17/22 07:30 75 16 154/88 99 08/17/22 07:00 69 15 158/71 100 08/17/22 06:30 76 160/75 99 08/17/22 06:20 80 160/75 99 08/17/22 06:10 68 150/72 99 08/17/22 06:00 96 150/73 100 08/17/22 05:50 90 150/73 98 08/17/22 05:40 76 144/73 99 08/17/22 05:30 74 156/78 99 08/17/22 05:20 81 156/78 98 08/17/22 05:10 74 158/64 100 08/17/22 05:00 82 166/79 100 08/17/22 04:50 92 18 166/79 100 08/17/22 04:40 73 8 L 171/84 100 08/17/22 04:30 82 12 167/84 98 08/17/22 04:20 92 18 167/84 100 08/17/22 04:11 82 23 150/83 100 08/17/22 02:03 97.8 F 18 138/87 100 Intake and Output 08/16/22 08/17/22 08/17/22 22:59 06:59 14:59 Other: Weight 73.113 kg Results CBC & Chem 7: 08/17/22 02:30 08/17/22 02:30 Labs: Abnormal Lab Results - Last 24 Hours (Table) 08/17/22 08/17/22 Range/Units 02:30 02:36 BUN 24 H (7-17) mg/dL Creatinine 1.22 H (0.52-1.04) mg/dL Glucose 126 H (74-99) mg/dL POC Glucose (mg/dL) 138 H (70-110) mg/dL Total Protein 6.1 L (6.3-8.2) g/dL
--- NOTE | 2022-08-17 12:28 | CA ---
Transthoracic Echo Report Name: Germania Gregorio Age: 76 Gender: F : 1945 Exam Date: 08/17/2022 10:06 Exam Location: [facility] Ht (in): 60 Wt (lb): 161 Ordering Physician: Lauri Donald MD Attending/Referring Phys: [id number], Odilon Nylon Winder Daniela Wadsworth, JOHN Procedure CPT: Indications: Thrombus Cardiac Hx: Technical Quality: Fair Contrast 1: Total Dose (mL): Contrast 2: Total Dose (mL): MEASUREMENTS (Male / Female) Normal Values 2D ECHO LV Diastolic Diameter PLAX 3.9 cm 4.2 - 5.9 / 3.9 - 5.3 cm LV Systolic Diameter PLAX 2.5 cm IVS Diastolic Thickness 1.0 cm 0.6 - 1.0 / 0.6 - 0.9 cm LVPW Diastolic Thickness 0.9 cm 0.6 - 1.0 / 0.6 - 0.9 cm LV Relative Wall Thickness 0.5 RV Internal Dim ED PLAX 2.7 cm LA Systolic Diameter LX 3.1 cm 3.0 - 4.0 / 2.7 - 3.8 cm LA Volume 29.1 cm??? 18 - 58 / 22 - 52 cm??? M-MODE Aortic Root Diameter MM 2.7 cm MV E Point Septal Separation 0.5 cm AV Cusp Separation MM 1.9 cm DOPPLER AV Peak Velocity 123.2 cm/s AV Peak Gradient 6.1 mmHg MV Area PHT 3.4 cm??? Mitral E Point Velocity 72.9 cm/s Mitral A Point Velocity 104.7 cm/s Mitral E to A Ratio 0.7 MV Deceleration Time 224.7 ms MV E' Velocity 7.6 cm/s Mitral E to MV E' Ratio 9.6 FINDINGS Left Ventricle Left ventricular ejection fraction is estimated at 55-60 %. Left ventricular cavity size normal. Left ventricular wall thickness normal. Right Ventricle Normal right ventricular size and function. Unable to estimate the right ventricular systolic pressure. Right Atrium Normal right atrial size. Left Atrium Normal left atrial size. No evidence for an atrial septal defect. Mitral Valve Structurally normal mitral valve. No mitral stenosis, regurgitation or prolapse. Aortic Valve Aortic valve not well visualized. No aortic valve stenosis or regurgitation. Tricuspid Valve Structurally normal tricuspid valve. No tricuspid stenosis, regurgitation or prolapse. Pulmonic Valve Pulmonic valve not well visualized. Pericardium Normal pericardium. No pericardial effusion. Aorta Normal size aortic root and proximal ascending aorta. CONCLUSIONS Normal LV systolic function Previewed by: Dr. Hadley Stafford MD (Electronically Signed) Final Date: 17 August 2022 12:27
--- NOTE | 2022-08-17 14:25 | P.CNNES ---
History of Present Illness Consult date: 08/17/22 Requesting physician: Lauri Donald Reason for Consult: cva History of Present Illness: This is a 76 year-old woman with medical history of hypertension, hyperlipidemia who presented to the emergency department with left upper extremity weakness and slurred speech. It seems that the patient the had left-sided weakness with slurred speech.and she stated that his symptoms began around 1:30 AM when she woke up on the 08/17/2022. She went to bed around 10 PM. She felt her slurred speech has resolved but continues to have left upper extremity weakness. She also feels left upper extremity is numb. She denies of any new neurological issues. She presented to our facility at around 2:02AM today. She had remote history of TIA and felt she was unsteady walking and was told she had TIA. She is on simvastatin 20 motor daily at bedtime. Patient is not on any antiplatelets or anticoagulation. Patient has ALLERGY to aspirin. Some of the workup during this hospital visit consisted of: CBC with differential is unremarkable Creatinine is 1.22 and the BUN is 24. Initial serum glucose is 126. AST and ALT is within normal limits CT of the head is reported as normal. CT angiography of the head and neck was reported as normal. Stroke code was activated and the per the ED note no IV TPA because of low NIH and improving symptoms. Also No IV tpa since the risk outweigh the benefit. Per the ED team the stroke neurologist recommended aspirin stat in the permissive hypertension. EKG is reported as sinus rhythm. Low QRS voltage in the precordial leads. Borderline EKG. 2-D echo was reported as normal left ventricular systolic function. Left atrium is normal in the body reported. No evidence for atrial septal defect. Review of Systems Review of system: The 12 point system was reviewed and apparent positive and negative per HPI. Past Medical History Past Medical History: Hyperlipidemia, Hypertension, Renal Disease History of Any Multi-Drug Resistant Organisms: None Reported Past Surgical History: Appendectomy, Tubal Ligation Past Psychological History: Depression Smoking Status: Never smoker Past Alcohol Use History: None Reported Past Drug Use History: None Reported Medications and Allergies Home Medications Medication Instructions Recorded Confirmed Type Metoprolol Tartrate 25 mg PO HS 11/19/18 08/17/22 History Simvastatin [Zocor] 20 mg PO HS 11/19/18 08/17/22 History Venlafaxine HCl ER [Effexor Xr] 150 mg PO HS 11/19/18 08/17/22 History Venlafaxine HCl ER [Effexor Xr] 75 mg PO HS 08/17/22 08/17/22 History Allergies Allergy/AdvReac Type Severity Reaction Status Date / Time aspirin Allergy Unknown Verified 08/17/22 07:31 naproxen [From Naprosyn] Allergy Unknown Verified 08/17/22 07:31 STEROIDS Allergy Unknown Uncoded 08/17/22 07:31 Physical Examination - Vital Signs Vital Signs: Vital Signs Temp Pulse Pulse Resp BP BP Pulse Ox 08/17/22 11:00 16 08/17/22 10:35 98.0 F 83 16 177/77 97 08/17/22 10:00 79 15 161/80 08/17/22 09:30 76 15 164/76 08/17/22 08:30 78 16 151/72 100 08/17/22 08:00 74 15 153/83 99 08/17/22 07:30 75 16 154/88 99 08/17/22 07:00 69 15 158/71 100 08/17/22 06:30 76 160/75 99 08/17/22 06:20 80 160/75 99 08/17/22 06:10 68 150/72 99 08/17/22 06:00 96 150/73 100 08/17/22 05:50 90 150/73 98 08/17/22 05:40 76 144/73 99 08/17/22 05:30 74 156/78 99 08/17/22 05:20 81 156/78 98 08/17/22 05:10 74 158/64 100 08/17/22 05:00 82 166/79 100 08/17/22 04:50 92 18 166/79 100 08/17/22 04:40 73 8 L 171/84 100 08/17/22 04:30 82 12 167/84 98 08/17/22 04:20 92 18 167/84 100 08/17/22 04:11 82 23 150/83 100 08/17/22 02:03 97.8 F 18 138/87 100 Intake and Output 08/16/22 08/17/22 08/17/22 22:59 06:59 14:59 Other: Voiding Method Toilet # Voids 1 Weight 73.113 kg 73.113 kg GENERAL: The patient is lying in bed and is not in acute distress. CHEST: The heart rate is regular rate rhythm. No murmurs to auscultation. LUNG: Clear to auscultation bilaterally no wheezing noted throughout. Not labored breathing. ABDOMEN/GI: Bowel sounds present in all 4 quadrants. No tenderness to palpation throughout. NEUROLOGICAL: Higher mental function: The patient is awake, alert, oriented to self, place and time. Patient is following commands. No aphasia and no neglect. Cranial nerves: The pupils are round, equal and reactive to light and accommodation. Visual tran are full to confrontation throughout. Extraocular movement is intact no nystagmus is noted. Facial sensation is normal to touch throughout. The facial strength is normal throughout. Hearing is normal bilaterally to hand rub. Tongue is midline and moved [id number] without any difficulty. No dysarthria is noted. Shoulder shrug is normal bilaterally. Motor: The strength is left forearm is 4 while left hand is 3-4. She had left mild pronator drift. Otherwise 5 over 5 throughout. Normal tone and bulk. Cerebellum: Had difficulty performing finger to nose on left because of weakness but normal on the right. Sensation: Sensation is normal to touch throughout. Reflexes (right/left): 2+ throughout. Plantars are downgoing bilaterally. Results - Laboratory Findings CBC and BMP: 08/17/22 02:30 08/17/22 02:30 Abnormal Lab Findings: Abnormal Labs 08/17/22 08/17/22 02:30 02:36 BUN 24 H Creatinine 1.22 H Glucose 126 H POC Glucose (mg/dL) 138 H Total Protein 6.1 L Assessment and Plan Assessment: Acute left upper extremity weakness, numbness and dysarthria (dysarthria has resolved) due to acute ischemic stroke. No IV tpa since symptoms improving Hypertension Hyperlipidemia History of remote TIA Plan: MRI of the brain is ordered by the ED team, lipid panel, hemoglobin are ordered and pending She was given aspirin 300mg once in the ED there was started on aspirin 81 mg (she has allergy to ASA but due to upset stomach but wanted to resume with it in hospital and will notify if has any side-effect). I started the patient on Plavix 75 mg daily. The patient to be on dual antiplatelets for 21 days and the after 21 days stop ASA but continue Plavix. Is on Lipitor 80 mg daily at bedtime for secondary stroke prophylaxis Continue neuro checks Placed on cardiac monitoring PT and OT and DIALYSIS PATIENT CARE TECHNICIAN are consulted We'll defer the rest of the medical management to primary team For DVT prophylaxis I started the patient on subcu heparin 5000 units every 8 hours Thank you for the consultation. Niko Miller M.D. Neuro-hospitalist Time with Patient: Greater than 30
[2022-08-17] MEDS ORDERED: LORazepam 2 MG/ML INJ IV PRN (16:03)
[2022-08-17] MEDS ORDERED: LORazepam 1 MG/0.5 ML VIAL IV STA (16:05)
[2022-08-17] MEDS: HEPARIN SODIUM,PORCINE/PF 5,000 UNIT/0.5 ML SYRINGE SQ SCH ×2 (16:43→20:29)
[2022-08-17] MEDS: CLOPIDOGREL 75 MG TAB PO SCH (16:43)
--- NOTE | 2022-08-17 19:38 | MR ---
EXAMINATION TYPE: MR brain wo con DATE OF EXAM: 08/17/2022 COMPARISON: HISTORY: Neuro deficit, acute, stroke suspected. Multiplanar multi echo imaging of the brain performed without contrast. On the diffusion images there are discrete small foci of increased signal in the right cerebral hemis phere in the parietal lobe farr and white matter. These measure up to almost 1 cm. Total number is ap proximately 5 On the T2 and FLAIR images there are scattered white matter high signal foci up to 8 mm. The brainste m is intact with no evidence of orbital mass. Sella turcica appears normal. Corpus callosum is intact . IMPRESSION: Bilateral patchy white matter signal changes could relate to microvascular ischemia or demyelinating disease. There are foci of increased signal on the diffusion images suggestive of acute or subacute i nfarcts in the right parietal lobe.
[2022-08-17] MEDS ORDERED: ATORVASTATIN 80 MG TAB PO SCH (21:00)
[2022-08-17] MEDS ORDERED: VENLAFAXINE HCL ER 75 MG CAP PO SCH (21:00)
[2022-08-17] MEDS ORDERED: VENLAFAXINE HCL ER 150 MG CAP PO SCH (21:00)
[2022-08-17] MEDS ORDERED: METOPROLOL TARTRATE 25 MG TAB PO SCH (21:00)
[2022-08-18] MEDS ORDERED: IBUPROFEN 600 MG TAB PO PRN (01:02)
[2022-08-18] MEDS ORDERED: ACETAMINOPHEN TAB 325 MG TAB PO PRN (01:10)
[2022-08-18] MEDS: CLOPIDOGREL 75 MG TAB PO SCH (08:01)
[2022-08-18] MEDS: HEPARIN SODIUM,PORCINE/PF 5,000 UNIT/0.5 ML SYRINGE SQ SCH (08:01)
[2022-08-18 08:14] VITALS: BP 166/78; PULSE 70; RESP 16; TEMP 96.6
[2022-08-18] MEDS ORDERED: FAMOTIDINE 20 MG TAB PO SCH (09:00)
[2022-08-18] MEDS ORDERED: ASPIRIN 81 MG PO SCH (09:00)
[2022-08-18 11:52] LABS: Chol/HDL Ratio 3.25 Ratio; LDL Cholesterol,Calculated 103.6 mg/dL (0.0-131.0)
--- NOTE | 2022-08-18 14:02 | P.PN ---
Subjective Progress Note Date: 08/18/22 She was seen at bedside and she feels she is having more strength over the left upper extremity and denies any neurological deficits. Objective - Vital Signs Vital signs: Vital Signs Temp 96.6 F L 08/18/22 08:00 Pulse 70 08/18/22 08:00 Resp 16 08/18/22 08:00 BP 166/78 08/18/22 08:00 Pulse Ox 94 L 08/18/22 08:00 FiO2 Intake & Output 08/17/22 08/18/22 08/18/22 18:59 06:59 18:59 Intake Total 120 Balance 120 Weight 73.113 kg 70.4 kg Intake: Oral 120 Other: Voiding Method Toilet Toilet Toilet # Voids 2 1 2 - Exam GENERAL: The patient is lying in bed and is not in acute distress. NEUROLOGICAL: Higher mental function: The patient is awake, alert, oriented to self, place and time. Patient is following commands. No aphasia and no neglect. Cranial nerves: The pupils are round, equal and reactive to light and accommodation. Visual tran are full to confrontation throughout. Extraocular movement is intact no nystagmus is noted. Facial sensation is normal to touch throughout. The facial strength is normal throughout. Hearing is normal bilaterally to hand rub. Tongue is midline and moved [id number] without any d ifficulty. No dysarthria is noted. Shoulder shrug is normal bilaterally. Motor: The strength is left upper extremity is 4-4+. Otherwise 5 over 5 throughout. Normal tone and bulk. Cerebellum: Had difficulty performing finger to nose on left because of weakness but normal on the right. Sensation: Sensation is normal to touch throughout. Reflexes (right/left): 2+ throughout. Plantars are downgoing bilaterally. Some of the workup during this hospital visit consisted of: Lipid panel is triglyceride of 188, cholesterol is 204, LDLs 103, HDL 62. Hemoglobin A1c is 5.6. CT of the head is reported as normal. CT angiography of the head and neck was reported as normal. Stroke code was activated and the per the ED note no IV TPA because of low NIH and improving symptoms. Also No IV tpa since the risk outweigh the benefit. Per the ED team the stroke neurologist recommended aspirin stat in the permissive hypertension. EKG is reported as sinus rhythm. Low QRS voltage in the precordial leads. Borderline EKG. 2-D echo was reported as normal left ventricular systolic function. Left atrium is normal in the body reported. No evidence for atrial septal defect. MRI the brain is reported as bilateral patchy white at matter signal changes could relate to microvascular ischemia or to moderate disease. There are foci of increased signal on diffusion images suggestive of acute or subacute infarct in the right parietal lobe. I do agree that the patient has a small right parie julio lobe is acute ischemic stroke - Labs CBC & Chem 7: 08/17/22 02:30 08/17/22 02:30 Labs: Abnormal Lab Results - Last 24 Hours (Table) 08/18/22 Range/Units 07:42 Triglycerides 188.00 H (0.00-149.00) mg/dL Cholesterol 204.00 H (0.00-200.00) mg/dL HDL Cholesterol 62.80 H (40.00-60.00) mg/dL Assessment and Plan Assessment: Acute ischemic stroke (right parietal over MRI. Presented with left upper extremity weakness, numbness and dysarthria (dysarthria and numbness has resolved) No IV tpa since symptoms improving. Etiology is crytogenic and appear embolic in nature. Hypertension Hyperlipidemia History of remote TIA Plan: On aspirin 81 mg (she has allergy to ASA but due to upset stomach but wanted to resume with it in hospital and will notify if has any side-effect). I started the patient on Plavix 75 mg daily. The patient to be on dual antiplatelets for 21 days and the after 21 days stop ASA but continue Plavix. Is on Lipitor 80 mg daily at bedtime for secondary stroke prophylaxis Continue neuro checks On cardiac monitoring PT and OT and TOOL RADIAL DRILL PRESS SET UP OPERATOR are consulted We'll defer the rest of the medical management to primary team For DVT prophylaxis On subcu heparin 5000 units every 8 hours I highly recommend the patient to follow-up with a neurologist and sample finisher as an outpatient and recommended follow-up with a neurologist within 1-2 weeks for further evaluation of her stroke. Patient feels that she is having more strength over the left upper extremity and did not want any inpatient or subacute rehab instead wanted to be discharged home. From a neurologic perspective there is no additional workup. Niko Miller M.D. Neuro-hospitalist Time with Patient: Less than 30
--- NOTE | 2022-08-19 22:22 | P.DS ---
Providers Date of admission: 08/17/22 03:56 Attending physician: Litzy Bradley Consults: 08/17/22 03:57 Consult Physician Routine Consulting Provider: Niko Miller Consult Reason/Comments: CVA Do you want consulting provider notified?: Yes Primary care physician: Physician Nonstaff Hospital Course: Diagnosis Cerebrovascular accident involving the left-sided of the body, in the middle cerebral artery territory , superolateral surface of the brain, in the parietofrontal cortex ischemic in origin. Chronic kidney disease stage II most likely hypertensive nephrosclerosis, creatinine is at baseline Hyperlipidemia Discharge disposition Patient is stable for discharge. Neurology has evaluated and cleared the patient. She will discharge no aspirin and statin combination for stroke prevention. [facility] with [facility]. Hospital course Patient is a 76-year-old female came in with comments of left sided weakness started one day prior to admission, she woke up from sleep around her 2 AM found to have weakness in the left and slurred speech and deviation of the tongue towards the left side. Patient denied any previous history of strokes or heart attacks in the past. Patient has some numbness in the left arm as well denied any weakness in the left leg. Patient states that aspirin makes her have some upset although at that time patient was taking it for pain and and it was in combination with other pain pills. Patient denied any fever chills. Patient doesn't know the exact onset of symptoms as she feels if happened when she is sleeping because of which patient didn't receive TPA patient had a CT of the head and CT angiography head and neck which did not show any significant abnormality. Patient does have chronic kidney disease with baseline creatinine of around 1.2-1.4. Patient did have slurred speech as well. Patient was admitted to hospital for acute stroke work up. Neurology was consulted as well as Pt/Ot and speech therapy. Echocardiogram showing EF of 55-60%. Patient had MRI which shows bilateral patchy white matter signal changes which could relate to microvascular ischemia or demyelinating disease. Troponin level is negative, blood count unremarkable, electrolytes are within normal limits, her creatinine is 1.22 which is baseline. Hgb A1C is 5.6. There is possible acute or subacute infarct in the right parietal lobe. She had cholesterol panel completed showing triglycerides 188, cholesterol 204, LDL 37.60, and HDL 62.80. She reports not following a heart healthy diet and reports not watching fat or sodium intake. 08/18/2022 Patient is evaluated today she reports her left sided weakness is improving and she has been completing her hand exercises as recommended by PT and OT. Physical therapy had evaluated the patient and recommended possible subacute or inpatient rehab pending clinical course. Patient wants to disharge home with homecare and home PT. She has been up ambulating in her room without difficulty and has showe red independently today. She denies chest pain, denies shortness of breath. No nausea, vomiting or diarrhea she is tolerating diet. No signs of aspiration. She is alert x3 she does have left sided weakness ongoing. No speech difficulties today. Lungs are clear, S1 S2 auscultated, abdomen is soft and nontender. Temperature today 96.6, heart rate 70, blood pressure 166/78, 94% room air. She is discharged on aspirin/plavix/liptor for stroke prevention. Please see medication reconciliation for list of current medications. Thank you for allowing us participate in the care of this patient. Total time taken in discharge planning greater than 35 minutes The impression and plan of care has been dictated by Apple Spear, Nurse Practitioner as directed. Dr. Cheli MD I have performed a history and physical examination and medical decision making of this patient, discussed the same with the dictator, and agree with the dictators assessment and plan as written, documented as a scribe. Based on total visit time, I have performed more than 50% of this visit. Patient Condition at Discharge: Stable Plan - Discharge Summary Discharge Rx Participant: No New Discharge Prescriptions: New Aspirin 81 mg PO DAILY #30 tab Atorvastatin [Lipitor] 80 mg PO HS #30 tab Clopidogrel [Plavix] 75 mg PO DAILY #30 tab Famotidine [Pepcid] 20 mg PO DAILY #30 tab Continue Metoprolol Tartrate 25 mg PO HS Venlafaxine HCl ER [Effexor XR] 150 mg PO HS Venlafaxine HCl ER [Effexor XR] 75 mg PO HS Discontinued Simvastatin [Zocor] 20 mg PO HS Discharge Medication List Metoprolol Tartrate 25 mg PO HS 11/19/18 [History] Venlafaxine HCl ER [Effexor XR] 150 mg PO HS 11/19/18 [History] Venlafaxine HCl ER [Effexor XR] 75 mg PO HS 08/17/22 [History] Aspirin 81 mg PO DAILY #30 tab 08/18/22 [Rx] Atorvastatin [Lipitor] 80 mg PO HS #30 tab 08/18/22 [Rx] Clopidogrel [Plavix] 75 mg PO DAILY #30 tab 08/18/22 [Rx] Famotidine [Pepcid] 20 mg PO DAILY #30 tab 08/18/22 [Rx] Follow up Appointment(s)/Referral(s): Faraz Sotelo [Other] - 1-2 Days (Primary Care ) Gabriel Rod DO [STAFF PHYSICIAN] - 1 Week (Pt to call office for an appointment date and time, as office is closed at time of discharge. Ensure office is aware that this is an appointment following a hospital stay. ) Gilma Blackwood, [NON-STAFF] - Niko Iyer MD [STAFF PHYSICIAN] - 1 Week (Pt to call office for an appointment date and time, as office is closed at time of discharge. Ensure office is aware that this is an appointment following a hospital stay. ) Ambulatory/Diagnostic Orders: Basic Metabolic Panel [LAB.AMB] Time Frame: 2 Days, Location: None Selected Patient Instructions/Handouts: Ischemic Stroke (DC) Activity/Diet/Wound Care/Special Instructions: Patient needs to follow with neurology outpatient, Dr Iyer recommended however you may call around and find an accepting office of your choosing. Patient also recommended to follow up with cardiology outpatient for further evaluation, possible loop recorder. Dr Rod has been recommending, you may also choose to follow with a different bellows charger assembler. Please see your primary care provider in 1 to 2 days post discharge. Patient is discharged home with referral in place to [facility] Please all Number provided to let them know you have arrived home and to coordinate services Recommend for home PT/OT and also aide Continue with dysphagia 3 ground diet Discharge Disposition: HOME SELF-CARE
== END 2022-08-18 13:13 | disposition home health service (06) | DRG 65 ==
LOC: EC 02:03 → 3SCARD 03:56
PROVIDERS: ADMIT Hospitalist; ATTEND Hospitalist
DX: I63.89 Other cerebral infarction (principal); G37.9 Demyelinating disease of central nervous system, unspecified; G81.94 Hemiplegia, unspecified affecting left nondominant side; R47.1 Dysarthria and anarthria; R29.704 NIHSS score 4; I12.9 Hypertensive chronic kidney disease with stage 1 through stage 4 chronic kidney disease, or unspecified chronic kidney disease; N18.2 Chronic kidney disease, stage 2 (mild); E78.5 Hyperlipidemia, unspecified; F32.A Depression, unspecified; Z86.73 Personal history of transient ischemic attack (TIA), and cerebral infarction without residual deficits; Z88.6 Allergy status to analgesic agent; R47.81 Slurred speech; Z79.899 Other long term (current) drug therapy
CPT/HCPCS: 36415; 70450; 70496; 70498; 70551; 71045; 80053; 80061; 83036; 84484; 85025; 85610; 85730; 93005; 93306; 96360; 96361; 99291

== ENCOUNTER 2023-04-26 14:32 | Emergency (ER) | payer MEDICARE ==
[2023-04-26 14:56] VITALS: TEMP 97.8
--- NOTE | 2023-04-26 15:42 | XR ---
EXAMINATION TYPE: XR pelvis AP view DATE OF EXAM: 04/26/2023 CLINICAL HISTORY: Recent fall injury with pain. TECHNIQUE: A single AP view of the pelvis is obtained. COMPARISON: None. FINDINGS: There is no acute fracture/dislocation evident in the pelvis. Severe narrowing of both hip joints. Moderate acetabular spurring bilaterally. Pubic symphysis is intact. Some narrowing of the b ilateral sacroiliac joints as well present. Surgical sutures project over the right upper pelvis. IMPRESSION: There is no acute fracture or dislocation in the pelvis.
--- NOTE | 2023-04-26 15:43 | XR ---
EXAMINATION TYPE: XR chest 1V portable DATE OF EXAM: 04/26/2023 Comparison: 08/17/2022 Clinical History: 77-year-old female fall, pain Findings: Heart normal size. Aorta and pulmonary vasculature within normal limits. No consolidation or pleural effusion. Impression: No acute cardiopulmonary process.
[2023-04-26 15:44] VITALS: BP 136/71; PULSE 78; RESP 18
--- NOTE | 2023-04-26 16:02 | CT ---
EXAMINATION TYPE: CT brain cspine wo con DATE OF EXAM: 04/26/2023 COMPARISON: Brain 08/17/2022 HISTORY: 77-year-old female pain after Fall, facial trauma CT DLP: 1153.7 mGycm Automated exposure control for dose reduction was used. Technique: Examination of the head was done in axial plane without intravenous contrast. Coronal and sagittal reconstructions performed. CT of the cervical spine was obtained in axial plane without intravenous injection of contrast mater ial. Coronal and sagittal reformatted images were obtained from the axial views for evaluation of f ractures, spinal alignment and canal. FINDINGS: Head: There is no evidence of acute intracranial hemorrhage, acute ischemic changes, mass, mass-effect, or extra-axial fluid collection. There is no effacement of cerebral sulci or basal subarachnoid cister ns. There is no hydrocephalus. There is no midline shift. Jones-white matter distinction is preserv ed. Small right paramedian anterior frontal scalp contusion. No underlying calvarial fracture. Benign bilateral basal ganglionic calcifications. Mastoid air cells well pneumatized. Facial bones reported separately. Cervical spine: Predental space widening, or prevertebral soft tissue swelling. Moderate spondylotic change mid cervical spine especially C4-C7 levels. Disc osteophyte complexes con tribute to variable mild to moderate spinal canal narrowing especially at C5-C6 and C6/C7. No acute fracture of the cervical spine. Degenerative grade 1 anterolisthesis C3-C4, T1-T2, T2-T3, T3-T4. Variable mild to moderate bilateral neural foraminal stenosis throughout, more severe on the left C5- C6 and on both sides at C6-C7. Mosaic attenuation in the visualized upper lungs suggesting small airways disease Sagittal and coronal reformatted images confirm above findings. COMBINED IMPRESSION: 1. Small scalp hematoma right paramedian anterior frontal region. No underlying acute intracranial ab normality seen. 2. No acute fracture of the cervical spine. There is moderate spondylotic change with degenerative gr xavi 1 spondylolisthesis as mentioned above 3. Facial bones reported separately.
--- NOTE | 2023-04-26 16:20 | CT ---
EXAMINATION TYPE: CT facial bones wo con DATE OF EXAM: 04/26/2023 COMPARISON: None HISTORY: 77-year-old female pain after Fall, facial trauma TECHNIQUE: Contiguous axial scanning of the facial bones without IV contrast. Coronal and sagittal re constructions performed. CT DLP: 1153.7 mGycm Automated exposure control for dose reduction was used. FINDINGS: The mandible and TMJs are intact. Mild degenerative change of the TMJs. Pterygoid plates and zygomatic arches are intact. No facial bone are nasal bone fracture is seen. Paranasal sinuses well pneumatized. Orbits and globes are intact. IMPRESSION: NO ACUTE FACIAL BONE FRACTURE SEEN.
--- NOTE | 2023-04-26 16:26 | ED ---
General Adult HPI - General Chief complaint: Fall Stated complaint: Fall Time Seen by Provider: 04/26/23 15:03 Source: patient, RN notes reviewed, old records reviewed Mode of arrival: ambulatory Limitations: no limitations - History of Present Illness Initial comments: Patient is a 77-year-old female presents here Department complaining of facial bruising after trip and fall on Saturday. He is on Plavix. States she felt lightheaded and fell forwards. Does not believe she lost consciousness. Denies any blood thinner use. Patient complaining of tailbone pain, as well as bruising around the eyes. Triage was concerned regarding bruising around the eyes is possible raccoon eyes and coughing immediately and placed in a room for evaluation. Denies any numbness or weakness. Denies any visual deficits. His no other acute complaints at this time. Denies any back pain, but does endorse bilateral buttock pain. Denies any neck pain. Denies any chest pain. Presents for further evaluation. Fall occurred multiple days ago. - Related Data Home Medications Medication Instructions Recorded Confirmed Metoprolol Tartrate 25 mg PO HS 11/19/18 08/17/22 Venlafaxine HCl ER [Effexor XR] 150 mg PO HS 11/19/18 08/17/22 Venlafaxine HCl ER [Effexor XR] 75 mg PO HS 08/17/22 08/17/22 Previous Rx's Medication Instructions Recorded Aspirin 81 mg PO DAILY #30 tab 08/18/22 Atorvastatin [Lipitor] 80 mg PO HS #30 tab 08/18/22 Clopidogrel [Plavix] 75 mg PO DAILY #30 tab 08/18/22 Famotidine [Pepcid] 20 mg PO DAILY #30 tab 08/18/22 Allergies Allergy/AdvReac Type Severity Reaction Status Date / Time aspirin Allergy Unknown Verified 04/26/23 14:56 naproxen [From Naprosyn] Allergy Unknown Verified 04/26/23 14:56 STEROIDS Allergy Unknown Uncoded 04/26/23 14:56 Review of Systems ROS Statement: Those systems with pertinent positive or pertinent negative responses have been documented in the HPI. Review of Systems: CONST: Denies fever EYES: Denies blurry vision ENT: Denies nasal congestion C/V: Denies Chest pain RESP: Denies shortness of breath GI: Denies abdominal pain : Denies dysuria SKIN: Endorses bruising around the eyes. MSK: Denies joint pain. NEURO: Denies headache ROS Other: All systems not noted in ROS Statement are negative. Past Medical History Past Medical History: CVA/TIA, Hyperlipidemia, Hypertension, Renal Disease History of Any Multi-Drug Resistant Organisms: None Reported Past Surgical History: Appendectomy, Back Surgery, Joint Replacement, Orthopedic Surgery, Tubal Ligation Additional Past Surgical History / Comment(s): rt ankle, knee, L5, rt 3rd finger pinning Past Psychological History: Depression Smoking Status: Never smoker Past Alcohol Use History: None Reported Past Drug Use History: None Reported General Exam - General Exam Comments Initial Comments: General: Appears in no acute distress. HEAD: Bruising under bilateral eyes as well as a small hematoma located over the right forehead. EYES: PERRLA, EOMI, conjunctiva normal, no discharge. Pupils are 3 mm and equal bilaterally. ENT: Hearing grossly intact, normal oropharynx. RESPIRATORY: Clear breath sounds bilaterally. No wheezes, rales, or rhonchi. C/V: Regular rate and rhythm. S1 and S2 auscultated, peripheral pulses 2+ and intact throughout ABD: Abd is soft, nontender, nondistended EXT: Normal range of motion, no obvious deformity. Pelvis is stable. No midline cervical, thoracic, lumbar spine tenderness to palpation. SKIN: Bruising around eyes. Bruising over forehead. NEURO: Alert and oriented x 4. Cranial nerves II-XII intact. No focal sensory or strength deficits. GCS of 15. Limitations: no limitations Course Vital Signs 04/26/23 04/26/23 14:48 15:42 Temperature 97.8 F Pulse Rate 89 78 Respiratory 20 18 Rate Blood Pressure 110/66 136/71 O2 Sat by Pulse 200 H 98 Oximetry Medical Decision Making - Medical Decision Making Was pt. sent in by a medical professional or institution (, PA, FARM LABORER, urgent care, hospital, or usp...) When possible be specific @ -No Did you speak to anyone other than the patient for history (EMS, parent, family, police, friend...)? What history was obtained from this source @ -No Did you review nursing and triage notes (agree or disagree)? Why? @ -I reviewed and agree with nursing and triage notes Were old charts reviewed (outside hosp., previous admission, EMS record, old EKG, old radiological studies, urgent care reports/EKG's, usp records)? Report findings @ -No old charts were reviewed Differential Diagnosis (chest pain, altered mental status, abdominal pain women, abdominal pain men, vaginal bleeding, weakness, fever, dyspnea, syncope, headache, dizziness, GI bleed, back pain, seizure, CVA, palpatations, mental health, musculoskeletal)? @ -Differential Musculoskeletal Muscular strain, contusion, ligament sprain, fracture, arthritis, septic arthritis, bursitis, cellulitis, muscle spasm, nerve compression, DVT, arterial occlusion, herpes zoster, electrolyte abnormality, tumor.... This is not meant to be in all inclusive list EKG interpreted by me (3pts min.). @ -None done X-rays interpreted by me (1pt min.). @ -Chest x-ray and pelvis x-ray reveals no obvious acute manic injury. CT interpreted by me (1pt min.). @ -CT brain and C-spine revealed no obvious traumatic injury. It is a small scalp hematoma but no intracranial injury. No facial bone fractures. U/S interpreted by me (1pt. min.). @ -None done What testing was considered but not performed or refused? (CT, X-rays, U/S, labs)? Why? @ -None What meds were considered but not given or refused? Why? @ -I offered analgesic medications which were declined. Did you discuss the management of the patient with other professionals (professionals i.e. , PA, FARM LABORER, lab, RT, psych nurse, health care social worker, electric razor mechanic, teacher, loan officer, manager case management)? Give summary @ -No Was smoking cessation discussed for >3mins.? @ -No Was critical care preformed (if so, how long)? @ -No Were there social determinants of health that impacted care today? How? (Homelessness, low income, unemployed, alcoholism, drug addiction, transportation, low edu. Level, literacy, decrease access to med. care, retirement, rehab)? @ -No Was there de-escalation of care discussed even if they declined (Discuss DNR or withdrawal of care, Hospice)? DNR status @ -No What co-morbidities impacted this encounter? (DM, HTN, Smoking, COPD, CAD, Cancer, CVA, ARF, Chemo, Hep., AIDS, mental health diagnosis, sleep apnea, morbid obesity)? @ -None Was patient admitted / discharged? Hospital course, mention meds given and route, prescriptions, significant lab abnormalities, going to OR and other pertinent info. @ -Based on the patient's presentation and physical exam, I'm concerned for possible cranial injury for the patient. Follows multiple days ago and therefore was not made a trauma activation. She does not meet criteria. We'll obtain CT brain, C-spine, facial bones as well as chest and pelvis x-rays. Patient was in agreement this plan. Vital signs within acceptable limits.. No obvious findings on exam other than the bruising. Imaging all negative other than for some bruising. And findings of hematomas. On reevaluation, patient was feeling improved. We discussed her imaging. She'll be discharged home at this time. She may have a mild concussion. She was in agreement this plan. Strict return precautions discussed. I instructed the patient to follow up with their PCP in the next 1-3 days. I explained that the patient should return to the emergency department if they experience any worsening symptoms. Strict return precautions were discussed with the patient. The patient expressed understanding of these instructions. I answered all questions that the patient had. The patient was discharged home in good condition with their prescriptions and follow up information. Undiagnosed new problem with uncertain prognosis? @ -No Drug Therapy requiring intensive monitoring for toxicity (Heparin, Nitro, Insulin, Cardizem)? @ -No Were any procedures done? @ -No Diagnosis/symptom? @ -Fall, face contusion, musculo skeletal strain Acute, or Chronic, or Acute on Chronic? @ -Acute Uncomplicated (without systemic symptoms) or Complicated (systemic symptoms)? @ -Uncomplicated Side effects of treatment? @ -No Exacerbation, Progression, or Severe Exacerbation? @ -No Poses a threat to life or bodily function? How? (Chest pain, USA, ID, pneumonia, PE, COPD, DKA, ARF, appy, cholecystitis, CVA, Diverticulitis, Homicidal, Suicidal, threat to staff... and all critical care pts) @ -No Disposition Clinical Impression: Fall, Contusion, Musculoskeletal strain, Concussion Disposition: HOME SELF-CARE Condition: Good Instructions (If sedation given, give patient instructions): Muscle Strain (ED), Concussion (ED), Fall Prevention for Older Adults (ED) Is patient prescribed a controlled substance at d/c from ED?: No Referrals: Faraz Sotelo MD [Primary Care Provider] - 1-2 days Time of Disposition: 16:15
== END 2023-04-26 16:45 | disposition home or self-care (01) ==
LOC: EC 14:32
DX: S00.03XA Contusion of scalp, initial encounter (principal); S06.0XAA Concussion with loss of consciousness status unknown, initial encounter; I10 Essential (primary) hypertension; F32.A Depression, unspecified; Z79.899 Other long term (current) drug therapy; Z88.6 Allergy status to analgesic agent; W01.0XXA Fall on same level from slipping, tripping and stumbling without subsequent striking against object, initial encounter
CPT/HCPCS: 70450; 70486; 71045; 72125; 72170; 99284

== ENCOUNTER 2023-06-09 21:58 | Emergency (ER) | payer MEDICARE ==
[2023-06-09 22:04] VITALS: TEMP 98.2
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
[2023-06-09 23:15] VITALS: BP 125/66; PULSE 92; RESP 20
== END 2023-06-09 23:31 | disposition home or self-care (01) ==
LOC: EC 21:58
DX: R05.9 Cough, unspecified (principal); I10 Essential (primary) hypertension; Z86.73 Personal history of transient ischemic attack (TIA), and cerebral infarction without residual deficits; F32.A Depression, unspecified; Z88.6 Allergy status to analgesic agent; Z88.8 Allergy status to other drugs, medicaments and biological substances; Z79.899 Other long term (current) drug therapy; X00.1XXA Exposure to smoke in uncontrolled fire in building or structure, initial encounter
CPT/HCPCS: 99284

== ENCOUNTER → 2023-09-24 | Outpatient (CLI) | payer MEDICARE ==
[2023-09-24 15:34] LABS: INR 0.9 (<1.2); Partial Thromboplastin Time 23.1 sec (22.0-30.0); Prothrombin Time 10.4 sec (10.0-12.5)
[2023-09-24 19:15] LABS: Basophils # (A) 0.02 X 10*3/uL (0.00-0.10); Basophils % (A) 0.4 %; Eosinophils # (A) 0.06 X 10*3/uL (0.04-0.35); Eosinophils % (A) 1.2 %; HCT 39.9 % (37.2-46.3); HGB 13.1 d/dL (12.0-15.0); Lymphocytes # (A) 1.76 X 10*3/uL (0.90-5.00); Lymphocytes % (A) 36.3 %; MCH 30.1 pg (27.0-32.0); MCHC 32.8 d/dL (32.0-37.0); MCV 91.7 FL (80.0-97.0); Mean Platelet Volume 12.1 FL (9.5-12.2); Monocytes # (A) 0.38 X 10*3/uL (0.20-1.00); Monocytes % (A) 7.8 %; NRBC Per 100 WBC 0 X 10*3/uL (0.00-0.01); Neutrophils # (A) 2.62 X 10*3/uL (1.80-7.70); Neutrophils % (A) 54.1 %; Platelet Count 182 X 10*3/uL (140-440); RBC 4.35 X 10*6/uL (4.10-5.20); RDW 12.4 % (11.5-14.5); WBC 4.85 X 10*3/uL (4.50-10.00)
[2023-09-24 19:29] LABS: ALT 17 U/L (8-44); AST 22 U/L (13-35); Albumin 4.5 d/dL (3.8-4.9); Albumin/Globulin Ratio 1.88 Ratio (1.60-3.17); Alkaline Phosphatase 110 U/L (41-126); BUN/Creat Ratio 16.83 Ratio (12.00-20.00); Blood Urea Nitrogen 20.2 mg/dL (9.0-27.0); Calcium 10.6 mg/dL (8.7-10.3); Carbon Dioxide 26.1 mmol/L (21.6-31.8); Chloride 103 mmol/L (96-109); Globulin 2.4 d/dL (1.6-3.3); Glucose 69 mg/dL (70-110); Potassium 4.3 mmol/L (3.5-5.5); Sodium 139 mmol/L (135-145); Total Bilirubin 0.5 mg/dL (0.3-1.2); Total Protein 6.9 d/dL (6.2-8.2)
[2023-09-24 23:05] LABS: Appearance,Urine Cloudy (Clear); Bilirubin,Urine Negative (Negative); Blood,Urine Negative (Negative); Color,Urine Yellow (Yellow); Ketones,Urine Negative (Negative); Nitrite,Urine Negative (Negative); Specific Gravity,Urine 1.021 (1.001-1.030); Urobilinogen,Urine 0.2 E.U./DL
[2023-09-24 23:39] LABS: Bacteria,Urine Trace
== END | disposition home or self-care (01) ==
LOC: LABPAT 14:01
PROVIDERS: ATTEND Orthopaedic Surgery
DX: Z01.812 Encounter for preprocedural laboratory examination (principal); M17.11 Unilateral primary osteoarthritis, right knee
CPT/HCPCS: 36415; 80053; 81001; 85025; 85610; 85730; 87070

== ENCOUNTER 2023-10-01 09:00 | Inpatient (IN) | payer MEDICARE ==
[~2023-10-01 09:00] MED LIST: ACETAMINOPHEN TAB 500 MG TAB PO PRN; GABAPENTIN 300 MG CAP PO PRN; MELOXICAM 7.5 MG TAB PO PRN; TRANEXAMIC 1,000 MG/100ML-NACL 1,000 MG in SALINE 1 100ML.BAG IVPB PRN
[2023-10-01] MEDS ORDERED: DEXAMETHASONE SOD PHOSPHATE 4 MG/ML 1 ML VIAL IV ONE (11:49)
[2023-10-01] MEDS ORDERED: ONDANSETRON 4 MG/2 ML VIAL IVP ONE (11:49)
[2023-10-01] MEDS ORDERED: MIDAZOLAM 2 MG/2 ML VIAL IV PRN (11:49)
[2023-10-01] MEDS ORDERED: LIDOCAINE 1% (10MG/ML) FOR IV START INTRADERMA PRN (11:49)
[2023-10-01] MEDS ORDERED: fentaNYL (PF) 50 MCG/ML 2 ML AMP IVP ONE (12:44)
[2023-10-01] MEDS ORDERED: ROPIVACAINE 1,100 MG, SODIUM CHLORIDE 0.9% 500 ML 330 ML, EMPTY PAIN BALL 1 EACH MISCELLANE PRN ×2 (13:05)
--- NOTE | 2023-10-01 13:07 | P.ANPRN ---
Procedure Note - Anesthesia - Nerve Block Performed Right Adductor Canal Infusion Time Out Performed: Yes Date of Procedure: 10/01/23 Procedure Start Time: 12:43 Procedure Stop Time: 12:51 Location of Patient: PreOp Indication: Acute Post-Operative Pain, Requested by Surgeon Sedation Type: Sedate with meaningful contact maintained Preparation: Sterile Prep, Sterile Dressing Position: Supine Catheter: Indwelling Needle Types: Pajunk Needle Gauge: 18 Ultrasound used to visualize needle placement: Yes Ultrasound used to observe medication spread: Yes Injectate: 0.5% Ropivacaine (see comment for volume) (15 ml + 10 ml NS) Blood Aspirated: No Pain Paresthesia on Injection Noted: No Resistance on Injection: Normal Image Stored and Saved: Yes Events: Uneventful and Well Tolerated
--- NOTE | 2023-10-01 13:08 | P.ANPRN ---
Procedure Note - Anesthesia - Nerve Block Performed Right iPack Single Time Out Performed: Yes Date of Procedure: 10/01/23 Procedure Start Time: 12:52 Procedure Stop Time: 12:57 Location of Patient: PreOp Indication: Acute Post-Operative Pain, Requested by Surgeon Sedation Type: Sedate with meaningful contact maintained Preparation: Sterile Prep Position: Left Lateral Catheter: None Needle Types: Pajunk Needle Gauge: 21 Ultrasound used to visualize needle placement: Yes Ultrasound used to observe medication spread: Yes Injectate: 0.5% Ropivacaine (see comment for volume) (15 ml + 10 ml NS + 4 mg Dexamethasone) Blood Aspirated: No Pain Paresthesia on Injection Noted: No Resistance on Injection: Normal Image Stored and Saved: Yes Events: Uneventful and Well Tolerated
[2023-10-01] MEDS: LACTATED RINGERS 1,000 ML IV SCH (13:18)
[2023-10-01] MEDS ORDERED: HYDROmorphone 0.5 MG/0.5 ML SYRINGE IVP PRN ×3 (13:25)
[2023-10-01] MEDS ORDERED: ONDANSETRON 4 MG/2 ML VIAL IVP PRN (13:25)
[2023-10-01] MEDS ORDERED: bisacodyL 10 MG SUPP RECTAL PRN (13:25)
[2023-10-01] MEDS ORDERED: NALOXONE 0.4 MG/ML 1 ML VIAL IV PRN (13:25)
[2023-10-01] MEDS ORDERED: MAGNESIUM HYDROXIDE 2,400 MG/30 ML CUP PO PRN (13:25)
[2023-10-01] MEDS ORDERED: NA PHOS,M-B/NA PHOS,DI-BA 133 ML ENEMA RECTAL PRN (13:25)
[2023-10-01] MEDS ORDERED: HYDROcodone/APAP 7.5-325MG 1 EACH TAB PO PRN (13:26)
[2023-10-01] MEDS ORDERED: ceFAZolin 1,000 MG in SODIUM CHLORIDE 0.9% 1,000 ML IRRIGATION ONE (13:55)
--- NOTE | 2023-10-01 15:06 | P.OP ---
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 Postoperative Diagnosis: Failed unicompartmental knee replacement right knee Procedure(s) Performed: Revision right total knee arthroplasty with conversion from unicompartmental kn ee replacement to total knee replacement Implants: Su & Nephew Journey II Oxinium Bi-cruciate stabilized femoral component size 4, right Su & Nephew Journey nonporous tibial baseplate size 2, right Su & Nephew Journey II, constrained articular insert, size 10 mm, Size 1-2, right Su & Nephew Journey Fior II resurfacing patellar component, oval, 29 mm All components were cemented using Palacos R bone cement The articulation is Oxinium on polyethylene Anesthesia: CHERIEA Surgeon: rAthur Barger Dental Associate #1: Layla Baum Estimated Blood Loss (ml): 50 Pathology: none sent Condition: stable Disposition: PACU Indications for Procedure: This is a 70-year-old female that had a right medial uni-compartmental knee replacement proximal 15 years ago. She's developed pain secondary to wearing of the implant as well as development of osteoarthritis in the lateral patellofemoral compartments. The patient's knee is end-stage, and conservative management has failed. The operation of knee replacement has been discussed at length in the office, as well as potential risks and complications. These are inclusive of, but not limited to: Infection, bleeding, scarring, discomfort, stiffness, blood vessel and nerve damage, need for further surgery, failure to relieve symptoms, persistence, recurrence, or worsening of problems, loosening, dislocation, wear, blood clot, pulmonary embolism, , gait dysfunction, stiffness, and other risks as discussed in the office. Patient elects to proceed and the consent form has been signed. Operative Findings: The operative findings are consistent with failed unicompartmental knee replacement of the right knee Description of Procedure: The patient was seen in the preoperative area, the consent was reviewed and the operative site was marked with a skin marker. The patient verified the procedure and the operative site. An adductor canal pain catheter and an iPACK block were placed by anesthesia in the preoperative area. The patient was then brought to the operating room and positioned on the operating room table in the supine position. Preoperative antibiotics and a gram of tranexamic acid were given intravenously. A spinal anesthetic was administered by the anesthesia department. Care was taken to make sure that all pressure points were adequately padded. A tourniquet was placed on the upper thigh and the lower extremity was prepped with ChloraPrep and draped in usual sterile fashion. A universal time-out was then performed which confirmed the patient's name, surgical site, ALLERGIES, and consent. The lower extremity was then exsanguinated and tourniquet was inflated to 250 mmHg. A standard anterior midline approach to the knee was performed. The skin and subcutaneous tissue were sharply dissected down to the patellar tendon. A medial parapatellar arthrotomy was then performed. The knee was then extended, the patellar was everted, and the knee was flexed. The medial unicompartmental knee replacement was inspected and found to have significant polyethylene wear. The infra-patellar fat pad was removed in order to enhance exposure. The anterior horns of both menisci were excised, and a release was performed to the posterior medial aspect of the knee. On gross visual inspection, there was significant loss of articular cartilage in the lateral and patellofemoral joint spaces. There were multiple periarticular osteophytes globally about the knee which were then removed with a Ronguer. The femoral canal was then opened with the 9.5 mm intramedullary drill. The 8 mm intramedullary belinda was then inserted into the femoral canal with the distal femoral cutting guide set for 5 of valgus. The distal femoral cutting block was then pinned in place. The intramedullary belinda was then removed, and the distal femur was then cut. The medial unicompartmental femoral component was then removed without difficulty. The cutting block was then removed and the cut was checked for symmetry. The resected bone was then measured to confirm the appropriate distal femoral resection. Next, the sizing guide was then placed and set for 3 external rotation based off of the epicondylar axis and Favian's line. Pins were then placed and the drill holes, and the femur was sized with the sizing stylus. The pins were then removed, and the sizing guide was then removed. The spikes of the appropriate size femoral block was then placed into the predrilled holes, and malleted into place. Two 45 mm pins were then placed into the fixation holes on the cutting block. An phuong wing was then used to ensure there would be no notching with the anterior cut. The anterior condyles were cut without notching. The anterior chord cut was then performed, followed by the posterior cut, posterior chamfer cut, and the anterior chamfer cut. The collateral ligaments were protected during the entire process. The cutting block was then removed. Any remaining bone and osteophytes were removed from the femur with a Ronguer. Attention was then directed to the tibia. The remaining ACL was removed with a Ronguer, and the tibia was then gently subluxed forward with a large bent knee retractor. Any remaining menisci were excised. The posterior lateral corner was cauterized in order to coagulate the lateral geniculate artery. The medial proximal tibial insert and tray were removed without incident. The extra medullary tibial cutting guide was then placed, set for the appropriate rotation, slope, and depth of resection. The proximal tibia cutting guide was then pinned in place. Proximal tibia was then cut and sized. A curved osteotome was then used to remove any posterior osteophytes from the distal femur. The femoral trial was placed. The box cutting guide was then placed and the femoral box was prepared by removing the intracondylar bone. The box trial was then placed. The tibial trial was placed with the appropriate-sized insert. The knee was able to fully extend and flex to 130 and was stable throughout all range of motion. The knee was then extended and the patella was everted. Patella was then measured, and then using an osteotomy guide, the patella was cut at the appropriate level. The patellar component was sized. The patellar drill guide was placed and the patella was drilled. The patella trial was then placed. The knee was then taken through range of motion with the patella trial and the patella tracked normally using the no thumbs technique. The patella trial was then removed. The knee was then flexed and lug holes were drilled through the femoral trial and the femoral trial was then removed. The tibial was then re-exposed, and the tibial broach guide was then pinned in place after it was set for the appropriate rotation to allow for the most coverage without overhang. The tibia was then reamed and broached. The femoral canal was plugged with autologous bone. The cut surfaces of bone were then irrigated with pulsatile lavage. The knee was also irrigated with Irrisept solution. The components were then opened, the cement was mixed. Cement was placed on the backside of the femoral, tibial, and patellar components. Cement was then applied to the tibial surface and pressurized into the surface using finger pressurization technique. The tibial component was then applied and excess cement was removed after it was impacted securely noted to be flush with the cut surface. In similar fashion, the cement was applied to the cut femoral surface, pressurized and using finger pressurization the component was impacted in place. Excess cement was removed. The polyethylene spacer was then implanted and locked into position. Patellar component was then applied in a similar technique and the patellar clamp was used to hold patella in place while the cement hardened. The knee was held in full extension while the cement hardened. Once the cement had fully hardened, the knee was reinspected. Any other cement extrusion was removed the final range of motion testing showed range of motion from 0-130 with excellent stability, both medial and laterally and appropriate alignment of the leg. Patella tracked normally. After the cemented hardened, the tourniquet was released and hemostasis was obtained. A second gram of transexamic acid was given intravenously. The knee was again irrigated. The knee was again taken through range of motion and found to be stable throughout all range of motion of 0-130, and the patella tracked normally. The fascia was then closed with 0 Vicryl followed by #2 strata fix suture. The subcutaneous tissue was closed with 3-0 Vicryl and 3-0 strata fix. Exofin glue was used for the skin and placed with the knee in flexion. After the glue had dried, and Optafoam silver impregnated dressing was applied. A lightly compressive dressing was applied using web roll and Mauro wrap. Patient was then transferred to the stretcher and taken to recovery room in stable condition. Sponge and needle counts were correct. The pediatric dental assistant LUNA Busby was required due the complexity surgery and the need for a skilled surgical scrub technician. She assisted in positioning, draping, retraction, and closure of the wound.
[2023-10-01] MEDS: HYDROmorphone 0.5 MG/0.5 ML SYRINGE IVP PRN ×2 (15:42→15:59)
--- NOTE | 2023-10-01 15:57 | XR ---
EXAMINATION TYPE: XR knee limited RT DATE OF EXAM: 10/01/2023 COMPARISON: NONE HISTORY: 78-year-old female evaluation for postoperative abnormality in alignment. TECHNIQUE: 2 views FINDINGS: Images show placement of right total knee arthroplasty. Both distal femoral and proximal tibial compo nents of the prosthesis appear well seated without periprosthetic fracture. Alignment grossly anatomi c. Anterior soft tissue swelling with scattered soft tissue air as well as intra-articular air relate d to recent operation. IMPRESSION: Uncomplicated postoperative appearance right total knee arthroplasty.
[2023-10-01] MEDS ORDERED: IV FLUID CONTINUATION 1,000 ML IV ONE (16:32)
[2023-10-01] MEDS: SODIUM CHLORIDE 0.9% 1,000 ML IV SCH (21:06)
[2023-10-01] MEDS: SENNOSIDES-DOCUSATE SODIUM 1 EACH TAB PO SCH (21:07)
[2023-10-02] MEDS: HYDROcodone/APAP 7.5-325MG 1 EACH TAB PO PRN ×3 (01:36→20:46)
[2023-10-02] MEDS: SODIUM CHLORIDE 0.9% 1,000 ML IV SCH ×2 (06:50→17:14)
--- NOTE | 2023-10-02 07:04 | P.PN ---
Progress Note - Text Progress Note Date: 10/02/23 Postoperative day # 1 status post revision total knee arthroplasty, and adductor canal catheter placed for postoperative analgesia, currently at ropivacaine 0.2% 8 mL per hour and continuous infusion, visual analogue scale is 3/10, patient using oral pain medication for breakthrough pain. Assessment and plan= Acute postoperative pain, adductor canal catheter for pain control, pain is well controlled we'll continue the same management.
[2023-10-02 09:11] LABS: Basophils # (A) 0.01 X 10*3/uL (0.00-0.10); Basophils % (A) 0.1 %; Eosinophils # (A) 0 X 10*3/uL (0.04-0.35); Eosinophils % (A) 0 %; HCT 33.2 % (37.2-46.3); HGB 10.3 d/dL (12.0-15.0); Lymphocytes # (A) 0.56 X 10*3/uL (0.90-5.00); Lymphocytes % (A) 7.1 %; MCH 29.8 pg (27.0-32.0); Mean Platelet Volume 12.3 FL (9.5-12.2); Monocytes # (A) 0.51 X 10*3/uL (0.20-1.00); Monocytes % (A) 6.5 %; NRBC Per 100 WBC 0 X 10*3/uL (0.00-0.01); Neutrophils # (A) 6.77 X 10*3/uL (1.80-7.70); Neutrophils % (A) 85.9 %; Platelet Count 128 X 10*3/uL (140-440); RBC 3.46 X 10*6/uL (4.10-5.20); RDW 12.2 % (11.5-14.5); WBC 7.88 X 10*3/uL (4.50-10.00)
[2023-10-02] MEDS: CHOLECALCIFEROL 25 MCG (1000 IU) TABLET PO SCH ×2 (10:15→11:21)
--- NOTE | 2023-10-02 10:39 | P.PN ---
Subjective Progress Note Date: 10/02/23 This is a 78-year-old female who is status post revision right total knee arthroplasty with conversion from unicompartmental knee replacement to total knee replacement. This is postoperative day #1 and patient is seen and evaluated at bedside with Dr. Arthur Barger. Patient states that she still needed some assistance when working with physical therapy. Patient states that she is sore in the knee, but the pain is tolerable. Objective - Vital Signs Vital signs: Vital Signs Temp 98.0 F 10/02/23 01:47 Pulse 83 10/02/23 01:47 Resp 19 10/02/23 01:47 BP 128/65 10/02/23 01:47 Pulse Ox 94 L 10/02/23 01:47 FiO2 Intake & Output 10/01/23 10/02/23 10/02/23 18:59 06:59 18:59 Intake Total 1341 Output Total 50 Balance 1291 Weight 66.4 kg Intake: IV 1051 Intake, IV Titration 140 Amount Sodium Chloride 0.9% 1, 140 000 ml @ 70 mls/hr IV . [id number] JOHN Rx#:[id number] Oral 150 Output: Estimated Blood Loss 50 Other: # Voids 3 - Exam Vital signs are stable. Patient is in no acute distress and is alert and oriented 3. Calf is soft and nontender to palpation. Dressing is clean, dry, and intact. Patient has full foot and ankle motion without pain or difficulty. Sensation intact. Neurovascular status and circulatory status are intact. - Labs CBC & Chem 7: 10/02/23 05:41 Labs: Abnormal Lab Results - Last 24 Hours (Table) 10/02/23 Range/Units 05:41 RBC 3.46 L (4.10-5.20) X 10*6/uL Hgb 10.3 L (12.0-15.0) d/dL Hct 33.2 L (37.2-46.3) % MCHC 31.0 L (32.0-37.0) d/dL Plt Count 128 L (140-440) X 10*3/uL MPV 12.3 H (9.5-12.2) FL Lymphocytes # 0.56 L (0.90-5.00) X 10*3/uL Eosinophils # 0 L (0.04-0.35) X 10*3/uL Assessment and Plan (1) Osteoarthritis of right knee Current Visit: Yes Status: Acute Code(s): M17.11 - UNILATERAL PRIMARY OSTEOARTHRITIS, RIGHT KNEE SNOMED Code(s): 626626523568062 (2) S/P total knee arthroplasty Current Visit: Yes Status: Acute Code(s): Z96.659 - PRESENCE OF UNSPECIFIED ARTIFICIAL KNEE JOINT SNOMED Code(s): 8133893034019 Plan: #1 Continue with routine postoperative care and pain control, leave dressing in place for 7 days. #2 Anticoagulation with Xarelto. #3 Physical therapy today. #4 Appreciate input from internal medicine. #5 Discussed the option of ECF with the patient and patient is refusing rehab and prefers to go home. Discussed that we will reevaluate her discharge options after she works with physical therapy tomorrow. Anticipate discharge home with home care in the next 24-48 hours.
[2023-10-02] MEDS: LACTATED RINGERS 1,000 ML IV SCH (11:21)
--- NOTE | 2023-10-02 11:21 | P.HPIM ---
History of Present Illness Patient is admitted for right knee arthroplasty and is status post surgery patient pain is fairly well-controlled on present pain regimen. Although patient will require a subacute rehabitation. Patient was given antibiotics because of abnormal urine although patient never had any symptoms of UTI including dysuria or increased urinary urgency or frequency didn't have any leukocytosis. Patient has no evidence of infection at this time patient received pre-and perioperative antibiotics. REVIEW OF SYSTEMS: CONSTITUTIONAL: No fever, no malaise, no fatigue. HEENT: No recent visual problems or hearing problems. Denied any sore throat. CARDIOVASCULAR: No chest pain, orthopnea, PND, no palpitations, no syncope. PULMONARY: No shortness of breath, no cough, no hemoptysis. GASTROINTESTINAL: No diarrhea, no nausea, no vomiting, no abdominal pain. NEUROLOGICAL: No headaches, no weakness, no numbness. HEMATOLOGICAL: Denies any bleeding or petechiae. GENITOURINARY: Denies any burning micturition, frequency, or urgency. MUSCULOSKELETAL/RHEUMATOLOGICAL: Denies any joint pain, swelling, or any muscle pain. ENDOCRINE: Denies any polyuria or polydipsia. The rest of the 14-point review of systems is negative. PHYSICAL EXAMINATION: GENERAL: The patient is alert and oriented x3, not in any acute distress. Well developed, well nourished. HEENT: Pupils are round and equally reacting to light. EOMI. No scleral icterus. No conjunctival pallor. Normocephalic, atraumatic. No pharyngeal erythema. No thyromegaly. CARDIOVASCULAR: S1 and S2 present. No murmurs, rubs, or gallops. PULMONARY: Chest is clear to auscultation, no wheezing or crackles. ABDOMEN: Soft, nontender, nondistended, normoactive bowel sounds. No palpable organomegaly. MUSCULOSKELETAL: Right knee surgical site area appears to be clean ng, or pedal edema. NEUROLOGICAL: Gross neurological examination did not reveal any focal deficits. SKIN: No rashes. Assessment and plan -Asymptomatic bacteriuria: Patient will not require any antibiotics and patient did receive, patient will not need any antibiotics on discharge either. Patient don't doesn't need to continue the remaining doses of antibiotics that were given. 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 currently being tx for UTI Dr dukes and dr Sotelo aware. carpal tunnel ebonie wrists. 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, rt 3rd finger pinning, Past Anesthesia/Blood Transfusion Reactions: No Reported Reaction Additional Past Anesthesia/Blood Transfusion Reaction / Comment(s): no blood transfusions Past Psychological History: Depression Smoking Status: Never smoker Past Alcohol Use History: None Reported Past Drug Use History: None Reported - Past Family History Father Additional Family Medical History / Comment(s): alzheimer Mother Additional Family Medical History / Comment(s): gangrenous gallbladder, smoker, depression Medications and Allergies Home Medications Medication Instructions Recorded Confirmed Type Metoprolol Tartrate 25 mg PO HS 11/19/18 10/01/23 History Venlafaxine HCl ER [Effexor XR] 150 mg PO HS 11/19/18 10/01/23 History Venlafaxine HCl ER [Effexor XR] 75 mg PO HS 08/17/22 10/01/23 History Atorvastatin [Lipitor] 80 mg PO HS #30 tab 08/18/22 10/01/23 Rx Clopidogrel [Plavix] 75 mg PO DAILY #30 tab 08/18/22 10/01/23 Rx Cholecalciferol [Vitamin D3 (25 50 mcg PO DAILY 09/27/23 10/01/23 History Mcg = 1000 Iu)] HYDROcodone/APAP 7.5-325MG [[place] 1 - 2 tab PO Q6H PRN #32 tab 10/01/23 Rx 7.5-325] Rivaroxaban [Xarelto] 10 mg PO DAILY #30 tab 10/01/23 Rx Sennosides [Senokot] 2 tab PO DAILY PRN #60 tablet 10/01/23 Rx Allergies Allergy/AdvReac Type Severity Reaction Status Date / Time aspirin Allergy ulcers Verified 10/01/23 12:21 naproxen [From Naprosyn] Allergy ulcers Verified 10/01/23 12:[address] told Uncoded 10/01/23 12:21 her not take steroids. Physical Exam Vitals: Vital Signs Temp Pulse Resp BP Pulse Ox 10/02/23 01:47 98.0 F 83 19 128/65 94 L 10/01/23 18:45 64 102/65 96 10/01/23 18:15 72 104/64 98 10/01/23 18:13 15 10/01/23 17:45 68 112/70 100 10/01/23 17:30 69 126/72 98 10/01/23 17:15 65 103/64 100 10/01/23 17:00 63 99/60 95 10/01/23 16:45 97.7 F 75 15 127/74 97 10/01/23 16:30 71 16 117/54 98 10/01/23 16:15 72 17 108/52 100 10/01/23 16:00 84 18 116/60 100 10/01/23 15:45 88 16 123/57 98 10/01/23 15:30 80 15 128/62 98 10/01/23 15:14 97.1 F L 97 12 156/68 99 10/01/23 13:10 65 16 120/58 100 10/01/23 12:40 98.0 F 69 16 113/58 100 Intake and Output 10/01/23 10/02/23 10/02/23 22:59 06:59 14:59 Intake Total 490 Output Total 50 Balance 440 Intake: IV 200 Intake, IV Titration 140 Amount Sodium Chloride 0.9% 1, 140 000 ml @ 70 mls/hr IV . [id number] Rx#:[id number] Oral 150 Output: Estimated Blood Loss 50 Other: # Voids 3 Weight 66.4 kg Results CBC & Chem 7: 10/02/23 05:41 Labs: Abnormal Lab Results - Last 24 Hours (Table) 10/02/23 Range/Units 05:41 RBC 3.46 L (4.10-5.20) X 10*6/uL Hgb 10.3 L (12.0-15.0) d/dL Hct 33.2 L (37.2-46.3) % MCHC 31.0 L (32.0-37.0) d/dL Plt Count 128 L (140-440) X 10*3/uL MPV 12.3 H (9.5-12.2) [place] Lymphocytes # 0.56 L (0.90-5.00) X 10*3/uL Eosinophils # 0 L (0.04-0.35) X 10*3/uL Thrombosis Risk Factor Assmnt - Choose All That Apply Each Factor Represents 1 point: Obesity (BMI >25) Other Risk Factors: Yes Each Risk Factor Represents 2 Points: Major surgery Each Risk Factor Represents 3 Points: Age 75 years or older Each Risk Factor Represents 5 Points: Elective major lower extremity arthoplasty Thrombosis Risk Factor Assessment Total Risk Factor Score: 11 Thrombosis Risk Factor Assessment Level: High Risk
[2023-10-02] MEDS: SENNOSIDES-DOCUSATE SODIUM 1 EACH TAB PO SCH ×2 (20:46→20:51)
[2023-10-02] MEDS ORDERED: CHOLECALCIFEROL 25 MCG (1000 IU) TABLET PO SCH (21:00)
[2023-10-02] MEDS ORDERED: VENLAFAXINE HCL ER 75 MG CAP PO SCH (21:00)
[2023-10-02] MEDS ORDERED: ATORVASTATIN 80 MG TAB PO SCH (21:00)
[2023-10-02] MEDS ORDERED: VENLAFAXINE HCL ER 150 MG CAP PO SCH (21:00)
[2023-10-03] MEDS: HYDROcodone/APAP 7.5-325MG 1 EACH TAB PO PRN ×2 (04:42→14:51)
[2023-10-03 08:04] VITALS: RESP 16
[2023-10-03] MEDS: LACTATED RINGERS 1,000 ML IV SCH (08:18)
[2023-10-03] MEDS: SODIUM CHLORIDE 0.9% 1,000 ML IV SCH (08:18)
[2023-10-03] MEDS ORDERED: RIVAROXABAN 10 MG TAB PO SCH (09:00)
--- NOTE | 2023-10-03 13:42 | P.DS ---
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 The patient presented for evaluation as an outpatient. After discussion and consideration patient elects to proceed with revision right total knee arthroplasty with conversion from unicompartmental knee replacement to total knee replacement. The patient is seen preoperatively by Dr. Barger and medically cleared for surgery by their primary care physician. Patient is admitted to [facility] on 10/01/2023 for revision right total knee arthroplasty with conversion from unicompartmental knee replacement to total knee replacement.. The procedure is performed without complication or sequelae. The patient is doing well postoperatively. Labs and vital signs are stable on day of discharge. On day of discharge patient's knee incision is healing well. There is minimal e rythema. There is no drainage noted at this time. There is minimal soft tissue swelling to the knee. Patient has full foot and ankle motion without difficulty or pain. Calf is soft and nontender to palpation. Neurovascular status to the right lower extremity is intact. Patient is discharged home in good condition. Please see med rec for accurate list of home medications. Plan - Discharge Summary Discharge Rx Participant: Yes New Discharge Prescriptions: New HYDROcodone/APAP 7.5-325MG [[place] 7.5-325] 1 - 2 tab PO Q6H PRN #32 tab PRN Reason: Pain Sennosides [Senokot] 2 tab PO DAILY PRN #60 tablet PRN Reason: Constipation Rivaroxaban [Xarelto] 10 mg PO DAILY #30 tab No Action Metoprolol Tartrate 25 mg PO HS Venlafaxine HCl ER [Effexor XR] 150 mg PO HS Venlafaxine HCl ER [Effexor XR] 75 mg PO HS Atorvastatin [Lipitor] 80 mg PO HS #30 tab Clopidogrel [Plavix] 75 mg PO DAILY #30 tab Cholecalciferol [Vitamin D3 (25 Mcg = 1000 Iu)] 50 mcg PO DAILY Discharge Medication List Metoprolol Tartrate 25 mg PO HS 11/19/18 [History] Venlafaxine HCl ER [Effexor XR] 150 mg PO HS 11/19/18 [History] Venlafaxine HCl ER [Effexor XR] 75 mg PO HS 08/17/22 [History] Atorvastatin [Lipitor] 80 mg PO HS #30 tab 08/18/22 [Rx] Clopidogrel [Plavix] 75 mg PO DAILY #30 tab 08/18/22 [Rx] Cholecalciferol [Vitamin D3 (25 Mcg = 1000 Iu)] 50 mcg PO DAILY 09/27/23 [History] HYDROcodone/APAP 7.5-325MG [[place] 7.5-325] 1 - 2 tab PO Q6H PRN #32 tab 10/01/23 [Rx] Rivaroxaban [Xarelto] 10 mg PO DAILY #30 tab 10/01/23 [Rx] Sennosides [Senokot] 2 tab PO DAILY PRN #60 tablet 10/01/23 [Rx] Follow up Appointment(s)/Referral(s): Faraz Sotelo MD [Primary Care Provider] - 1 Week [facility],Home Care [NON-STAFF] - As Needed Arthur Barger DO [Doctor of Osteopathic Medicine] - 10/16/23 2:30 pm (with Layla) Patient Instructions/Handouts: *Surgery [facility] - On-Q Pain Pump Discharge Instructions, Knee Replacement (DC) Activity/Diet/Wound Care/Special Instructions: Weightbearing as tolerated with a walker. CPM 5-6h daily as tolerated. Leave dressing intact. Dressing may be removed by home care nurse or by patient in 7 days. Then change dressing twice daily until follow up. May shower with initial dressing intact and after removal. If dressing become saturated, please remove. Recommend use of compression stockings daily until follow up to help prevent swelling and blood clots. May remove at night before sleeping. Please take Xarelto for 30 days postoperatively to help prevent blood clots. Please follow up with [facility] and call with any questions or concerns, . Discharge Disposition: HOME WITH HOME HEALTH SERVICES
[2023-10-03 14:58] VITALS: BP 156/82; PULSE 91; TEMP 99.4
--- NOTE | 2023-10-04 16:31 | P.CONS ---
History of Present Illness - Reason for Consult Consult date: 10/03/23 Medical management, status post right knee arthroplasty - History of Present Illness Patient is admitted for right knee arthroplasty and is status post surgery patient pain is fairly well-controlled on present pain regimen. Although patient will require a subacute rehabitation. Patient was given antibiotics because of abnormal urine although patient never had any symptoms of UTI including dysuria or increased urinary urgency or frequency didn't have any leukocytosis. Patient has no evidence of infection at this time patient received pre-and perioperative antibiotics. 10/03/2023 Patient is seen and evaluated in follow-up today status post right knee arthroplasty doing relatively well. There is some minimal right lower extremity swelling noted which is to be expected otherwise positive pulses and cap refill noted. Patient reports has been up and walking with a walker and doing relatively well. Patient plans on going home with home care being arranged. Patient reports she follows with Dr. Sotelo in the outpatient setting and has been undergoing UTI treatment contained on Macrobid which has been discontinued although patient is upset about discontinuing this as this has been ongoing. Patient has been instructed to follow-up with primary care provider this week. Encouraged incentive spirometer use at least 10 times every hour while awake. Patient is afebrile with no reports of chest pain or shortness of breath. Patient is medically stable for discharge today once cleared by orthopedics Review of systems: Constitutional: No reports of fatigue, fever, or chills Cardiovascular: No reports of chest pain or palpitations Respiratory: No reports of shortness of breath or cough GI: No reports of nausea, vomiting, or diarrhea : No reports of dysuria or retention Neurovascular: No reports of weakness or numbness All medications have been reviewed PHYSICAL EXAMINATION: GENERAL: The patient is alert and oriented x3, not in any acute distress. Well developed, well nourished. HEENT: Pupils are round and equally reacting to light. EOMI. No scleral icterus. No conjunctival pallor. Normocephalic, atraumatic. No pharyngeal erythema. No thyromegaly. CARDIOVASCULAR: S1 and S2 present. No murmurs, rubs, or gallops. PULMONARY: Chest is clear to auscultation, no wheezing or crackles. ABDOMEN: Soft, nontender, nondistended, normoactive bowel sounds. No palpable organomegaly. MUSCULOSKELETAL: Right knee surgical site area appears to be clean ng, or pedal edema. NEUROLOGICAL: Gross neurological examination did not reveal any focal deficits. SKIN: No rashes. Assessment: -Asymptomatic bacteriuria: Patient will not require any antibiotics. patient will not need any antibiotics on discharge either. Patient has been following with her primary care provider outpatient maintained on Macrobid -CVA TIA history -hypertension -hyperlipidemia -Right knee arthroplasty: Status post surgery -DVT prophylaxis: As mentioned above -GI prophylaxis -Full code Plan: Patient home medications reviewed and resumed as appropriate. Patient has been taking Macrobid outpatient prescribed by her primary care provider Dr. Sotelo and was instructed to hold antibiotics for surgery and resume after. Discussed with the patient as she is not currently having any symptoms to discontinue this medication although she would like to speak further with her primary care provider about this Encouraged incentive spirometer use at least 10 times every hour while awake Patient is going home with home care and case management following making arrangements Patient is medically stable for discharge today once cleared by orthopedics Thank you kindly for this consultation. We will continue to follow during hospitalization. The impression and plan of care has been dictated by Tran Olson, Nurse Practitioner as directed. Dr. Cheli MD I have performed a history and examination and MDM of this patient, discussed the same with the dictator, and agree with the dictator's assessment and plan as written ,documented as a scribe. Based on total visit time, I have performed more than 50% of the visit. 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 currently being tx for UTI Dr dukes and dr Sotelo aware. carpal tunnel ebonie wrists. 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, rt 3rd finger pinning, Past Anesthesia/Blood Transfusion Reactions: No Reported Reaction Additional Past Anesthesia/Blood Transfusion Reaction / Comm: no blood transfusions Past Psychological History: Depression Smoking Status: Never smoker Past Alcohol Use History: None Reported Past Drug Use History: None Reported - Past Family History Father Additional Family Medical History / Comment(s): alzheimer Mother Additional Family Medical History / Comment(s): gangrenous gallbladder, smoker, depression Medications and Allergies Home Medications Medication Instructions Recorded Confirmed Type Metoprolol Tartrate 25 mg PO HS 11/19/18 10/01/23 History Venlafaxine HCl ER [Effexor XR] 150 mg PO HS 11/19/18 10/01/23 History Venlafaxine HCl ER [Effexor XR] 75 mg PO HS 08/17/22 10/01/23 History Atorvastatin [Lipitor] 80 mg PO HS #30 tab 08/18/22 10/01/23 Rx Cholecalciferol [Vitamin D3 (25 50 mcg PO DAILY 09/27/23 10/01/23 History Mcg = 1000 Iu)] HYDROcodone/APAP 7.5-325MG [[place] 1 - 2 tab PO Q6H PRN #32 tab 10/03/23 Rx 7.5-325] Rivaroxaban [Xarelto] 10 mg PO DAILY #30 tab 10/03/23 Rx Sennosides [Senokot] 2 tab PO DAILY PRN #60 tablet 10/03/23 Rx Allergies Allergy/AdvReac Type Severity Reaction Status Date / Time aspirin Allergy ulcers Verified 10/01/23 12:21 naproxen [From Naprosyn] Allergy ulcers Verified 10/01/23 12:[address] told Uncoded 10/01/23 12:21 her not take steroids. Physical Exam Vitals: Vital Signs Temp Pulse Pulse Resp BP Pulse Ox 10/03/23 07:53 98.8 F 94 16 119/65 96 10/03/23 01:53 98.8 F 82 18 100/52 94 L 10/02/23 14:00 98.8 F 86 15 116/74 99 Intake and Output 10/02/23 10/03/23 10/03/23 22:59 06:59 14:59 Other: # Voids 2 3 1 Results CBC & Chem 7: 10/02/23 05:41
== END 2023-10-03 18:07 | disposition home health service (06) | DRG 468 ==
LOC: EDSTATUS 09:00 → 2ORMAIN 11:24 → 4SSUR 16:11
PROVIDERS: ADMIT Orthopaedic Surgery; ATTEND Orthopaedic Surgery
PROC: 0SPC09Z Removal of Liner from Right Knee Joint, Open Approach (ICD-10-PCS; principal; 2023-10-01 13:20)
PROC: 3E0T3BZ Introduction of Anesthetic Agent into Peripheral Nerves and Plexi, Percutaneous Approach (ICD-10-PCS; principal; 2023-10-01 13:20)
PROC: 0QUD0JZ Supplement Right Patella with Synthetic Substitute, Open Approach (ICD-10-PCS; principal; 2023-10-01 13:20)
PROC: 0SUV09Z Supplement Right Knee Joint, Tibial Surface with Liner, Open Approach (ICD-10-PCS; principal; 2023-10-01 13:20)
PROC: 0SRC0J9 Replacement of Right Knee Joint with Synthetic Substitute, Cemented, Open Approach (ICD-10-PCS; principal; 2023-10-01 13:20)
DX: T84.062A Wear of articular bearing surface of internal prosthetic right knee joint, initial encounter (principal); M17.11 Unilateral primary osteoarthritis, right knee; F32.A Depression, unspecified; I12.9 Hypertensive chronic kidney disease with stage 1 through stage 4 chronic kidney disease, or unspecified chronic kidney disease; N18.30 Chronic kidney disease, stage 3 unspecified; Y79.2 Prosthetic and other implants, materials and accessory orthopedic devices associated with adverse incidents; R82.71 Bacteriuria; E78.5 Hyperlipidemia, unspecified; Z79.01 Long term (current) use of anticoagulants; Z86.73 Personal history of transient ischemic attack (TIA), and cerebral infarction without residual deficits; Z79.02 Long term (current) use of antithrombotics/antiplatelets; Z79.899 Other long term (current) drug therapy; Z88.6 Allergy status to analgesic agent; Z88.5 Allergy status to narcotic agent; Z98.51 Tubal ligation status
CPT/HCPCS: 64448; 64999; 85025

== ENCOUNTER → 2024-08-26 | Outpatient (CLI) | payer MEDICARE ==
[2024-08-27 02:15] LABS: Basophils # (A) 0.01 X 10*3/uL (0.00-0.10); Basophils % (A) 0.2 %; Eosinophils # (A) 0.07 X 10*3/uL (0.04-0.35); Eosinophils % (A) 1.1 %; HCT 42.5 % (37.2-46.3); HGB 13.6 g/dL (12.0-15.0); Lymphocytes # (A) 2.01 X 10*3/uL (0.90-5.00); Lymphocytes % (A) 31.5 %; MCH 30.5 pg (27.0-32.0); MCV 95.3 FL (80.0-97.0); Mean Platelet Volume 12.1 FL (9.5-12.2); Monocytes % (A) 7.8 %; NRBC Per 100 WBC 0 X 10*3/uL (0.00-0.01); Neutrophils # (A) 3.78 X 10*3/uL (1.80-7.70); Neutrophils % (A) 59.2 %; Platelet Count 199 X 10*3/uL (140-440); RBC 4.46 X 10*6/uL (4.10-5.20); RDW 12.2 % (11.5-14.5); WBC 6.38 X 10*3/uL (4.50-10.00)
[2024-08-27 03:18] LABS: Chol/HDL Ratio 2.07 Ratio; LDL Cholesterol,Calculated 50.3 mg/dL (0.0-131.0)
[2024-08-27 03:32] LABS: ALT 17 U/L (8-44); AST 24 U/L (13-35); Albumin 4.6 g/dL (3.8-4.9); Albumin/Globulin Ratio 1.92 Ratio (1.60-3.17); Alkaline Phosphatase 107 U/L (41-126); BUN/Creat Ratio 13.27 Ratio (12.00-20.00); Blood Urea Nitrogen 19.9 mg/dL (9.0-27.0); Calcium 11.2 mg/dL (8.7-10.3); Carbon Dioxide 22.1 mmol/L (21.6-31.8); Chloride 101 mmol/L (96-109); Globulin 2.4 g/dL (1.6-3.3); Glucose 92 mg/dL (70-110); Potassium 4.9 mmol/L (3.5-5.5); Sodium 138 mmol/L (135-145)
== END ==
LOC: LABWHC1 13:46
PROVIDERS: ATTEND Family Medicine
DX: Z00.00 Encounter for general adult medical examination without abnormal findings (principal); N18.30 Chronic kidney disease, stage 3 unspecified; Z78.0 Asymptomatic menopausal state; Z68.28 Body mass index [BMI] 28.0-28.9, adult
CPT/HCPCS: 36415; 80053; 80061; 82306; 83036; 83970; 84443; 85025

== ENCOUNTER → 2024-11-09 | Outpatient (CLI) | payer MEDICARE ==
[2024-11-09 15:00] LABS: INR 0.9 (<1.2); Partial Thromboplastin Time 22.3 sec (22.0-30.0); Prothrombin Time 10.3 sec (10.0-12.5)
[2024-11-09 19:34] LABS: Blood Urea Nitrogen 19.2 mg/dL (9.0-27.0); Glucose 95 mg/dL (70-110)
[2024-11-09 19:35] LABS: ALT 18 U/L (8-44); AST 22 U/L (13-35); Albumin 4.4 g/dL (3.8-4.9); Albumin/Globulin Ratio 1.63 Ratio (1.60-3.17); Alkaline Phosphatase 98 U/L (41-126); Calcium 10.4 mg/dL (8.7-10.3); Carbon Dioxide 24.1 mmol/L (21.6-31.8); Chloride 101 mmol/L (96-109); Globulin 2.7 g/dL (1.6-3.3); Potassium 4.9 mmol/L (3.5-5.5); Sodium 139 mmol/L (135-145); Total Bilirubin 0.7 mg/dL (0.3-1.2); Total Protein 7.1 g/dL (6.2-8.2)
[2024-11-09 19:40] LABS: HCT 41.3 % (37.2-46.3); HGB 13.4 g/dL (12.0-15.0); MCH 30.3 pg (27.0-32.0); MCHC 32.4 g/dL (32.0-37.0); MCV 93.4 FL (80.0-97.0); Mean Platelet Volume 11.1 FL (9.5-12.2); NRBC Per 100 WBC 0 X 10*3/uL (0.00-0.01); Platelet Count 211 X 10*3/uL (140-440); RBC 4.42 X 10*6/uL (4.10-5.20); RDW 12.5 % (11.5-14.5); WBC 6.21 X 10*3/uL (4.50-10.00)
== END | disposition home or self-care (01) ==
LOC: LABPAT 13:53
PROVIDERS: ATTEND Orthopaedic Surgery
DX: Z01.818 Encounter for other preprocedural examination (principal); Z22.322 Carrier or suspected carrier of Methicillin resistant Staphylococcus aureus
CPT/HCPCS: 36415; 80053; 85027; 85610; 85730; 86850; 86900; 86901; 87070

== ENCOUNTER 2024-11-16 07:47 | Day surgery (SDC) | payer MEDICARE ==
[2024-11-12 12:58] VITALS: BMI 28.9
[~2024-11-16 07:47] MED LIST changes: -ACETAMINOPHEN TAB 500 MG TAB PO PRN; -GABAPENTIN 300 MG CAP PO PRN
[2024-11-16] MEDS: GABAPENTIN 300 MG CAP PO PRN (08:09)
[2024-11-16] MEDS: DEXAMETHASONE SOD PHOSPHATE 4 MG/ML 1 ML VIAL IV ONE (08:09)
[2024-11-16] MEDS: ACETAMINOPHEN TAB 500 MG TAB PO PRN (08:09)
[2024-11-16] MEDS: ONDANSETRON 4 MG/2 ML VIAL IVP ONE (08:37)
[2024-11-16] MEDS: LACTATED RINGERS 1,000 ML IV SCH (08:37)
[2024-11-16] MEDS: MIDAZOLAM 2 MG/2 ML VIAL IV PRN (08:42)
[2024-11-16] MEDS: fentaNYL (PF) 50 MCG/ML 2 ML AMP IVP STA (08:43)
[2024-11-16] MEDS: IV FLUID CONTINUATION 1,000 ML IV ONE (08:53)
[2024-11-16] MEDS ORDERED: NALOXONE 0.4 MG/ML 1 ML VIAL IV PRN (08:59)
[2024-11-16] MEDS ORDERED: MAGNESIUM HYDROXIDE 2,400 MG/30 ML CUP PO PRN (08:59)
[2024-11-16] MEDS ORDERED: HYDROmorphone 0.5 MG/0.5 ML SYRINGE IVP PRN ×2 (08:59)
[2024-11-16] MEDS ORDERED: ONDANSETRON 4 MG/2 ML VIAL IVP PRN (08:59)
[2024-11-16] MEDS ORDERED: fentaNYL (PF) 50 MCG/ML 2 ML AMP ONE (09:13)
[2024-11-16] MEDS ORDERED: SUCCINYLCHOLINE CHLORIDE 200 MG/10 ML VIAL IV ONE (09:13)
[2024-11-16] MEDS ORDERED: PROPOFOL 10 MG/ML 20 ML VIAL IV ONE (09:13)
[2024-11-16] MEDS ORDERED: LIDOCAINE 1% INJ 10MG/ML (20 ML MDV) ONE (09:13)
[2024-11-16] MEDS ORDERED: TRANEXAMIC 1,000 MG/100ML-NACL PREMIX BAG ONE (09:13)
[2024-11-16] MEDS ORDERED: PHENYLEPHRINE-0.9% NACL SYG 1,000 MCG/10 ML SYRINGE ONE (09:13)
[2024-11-16] MEDS ORDERED: ROPIVACAINE 5 MG/ML 30 ML VIAL ONE (09:13)
[2024-11-16] MEDS ORDERED: GLYCOPYRROLATE 0.2 MG/ML 2 ML VIAL ONE (09:13)
[2024-11-16] MEDS ORDERED: ROCURONIUM 10 MG/ML (5 ML VIAL) IV ONE (09:13)
[2024-11-16] MEDS ORDERED: NEOSTIGMINE 1 MG/ML 10 ML VIAL ONE (09:13)
[2024-11-16] MEDS: ceFAZolin 1,000 MG in SODIUM CHLORIDE 0.9% 1,000 ML IRRIGATION ONE (09:18)
[2024-11-16] MEDS: ROPIVACAINE 5 MG/ML 30 ML VIAL MISCELLANE ONE ×2 (09:51→10:21)
[2024-11-16] MEDS: LACTATED RINGERS 1,000 ML IV ONE (10:23)
--- NOTE | 2024-11-16 10:28 | P.OP ---
Date of Procedure: 11/16/24 Preoperative Diagnosis: Severe osteoarthritis left hip Postoperative Diagnosis: Severe osteoarthritis left hip Procedure(s) Performed: Left total hip arthroplasty with a direct anterior approach Implants: Su & Nephew Polarstem standard size 0 with a collar Su [employer] Nephew R3, 3 hole hemispherical acetabular shell, 50 mm Su [employer] Nephew Reflection 6.5 mm cancellus screws, 20 mm 2 Su [employer] Nephew R3, XLPE 20 acetabular liner Su & Nephew Oxinium femoral head 36 mm, +0 All components were press-fit. The articulation is Oxinium on polyethylene. Anesthesia: GETA Surgeon: Arthur Barger Stage Setting Painter Apprentice #1: Layla Baum Estimated Blood Loss (ml): 300 Pathology: none sent Condition: stable Disposition: PACU Indications for Procedure: After failure of conservative treatment we discussed the surgical and nonsurgic al treatment options at length. Patient wishes to proceed with a total hip arthroplasty with a direct anterior approach. Complications specific to this procedure were discussed at length, including but not limited to infection, leg length discrepancy, dislocation, nerve injury, and fracture. Covid-19 was also discussed at length with the patient, and they are aware of the current policies and procedures. The patient was given the option of delaying surgery, but they elect to proceed knowing these risks. Patient is aware of all these complications and informed consent was obtained Operative Findings: The operative findings are consistent with severe osseous arthritis the left hip Description of Procedure: The patient was seen and evaluated in the preoperative area and the consent was reviewed. The operative site was marked with a skin marker. The patient verified the procedure and operative site. A DENISE block was placed by anesthesia in the preoperative area. The patient was then brought to the operating room and given preoperative antibiotics intravenously. 1 g of Tranexamic acid was also given intravenously. A general anesthetic was administered by the anesthesia department. The patient was then placed on the [place] table with the bony prominences well-padded. The hip area was then prepped with a ChloraPrep solution and draped in the usual sterile fashion. A universal timeout was then performed, which confirmed the patient's name, surgical site, ALLERGIES, and procedure being performed on the consent. Next the incision site was located at 1 cm distal and 4 cm lateral to the anterior superior iliac spine. The skin and subcutaneous tissues were sharply incised. Incision was carefully dissected down to the fascia overlying the tensor fascia veronica muscle. This fascia was then incised in line with the muscle fibers. Care was taken to stay laterally in order to avoid injuring the lateral femoral cu taneous nerve. Next, using blunt finger dissection, the tensor fascia veronica muscle was dissected off its investing fascia. The muscle was then carefully retracted laterally with a cobra retractor over the lateral neck of the femur. Next, the circumflex vessels were identified and cauterized using the Aquamantis device. The anterior hip capsule was then exposed. The capsule was then opened and an inverted T fashion. The retractors were then placed intracapsularly. The retractors were maintained intracapsular throughout the procedure. The proximal femur was then visualized. Fluoroscopic x-rays were then taken in order to evaluate the preoperative leg lengths. A small amount of traction was placed on the leg. The femoral neck was then osteotomized at the appropriate level above the lesser trochanter. A small wedge of bone was then removed from the remaining femoral head. Next, using a corkscrew the femoral head was removed from the acetabulum. On gross visual inspection, the femoral head had complete loss of articular cartilage and multiple periarticular osteophytes. The femoral head was then measured. Attention was then turned to the acetabulum. The acetabulum was exposed and any remaining labrum was excised. Sequential reaming of the acetabulum was performed using fluoroscopic guidance until there was a good bed of bleeding cancellus bone. When the appropriate size was reached, a trial was then placed. The position and fit of the trial was checked with fluoroscopy. The trial was then removed. Then, using fluoroscopic guidance, the final implant was impacted at 20 of anteversion and 40 of abduction, and fully seated in the acetabulum. 2 screws were then placed in the acetabulum. Again fluoroscopy was used to check position of the screws. Next, the liner was then impacted, with a 20 elevated liner located in the anterior superior quadrant. Component locking was confirmed. Attention was then directed to the femur. With the aid of the [place] table, the femur was externally rotated to approximately 130, extended, and adducted under the opposite leg. A side hook was then placed under the proximal femur, and the side hook elevator was used to elevate the proximal femur while releasing the capsule. Retractors were then placed. A capsular release was performed, as well as a release of the conjoined tendon, which afforded excellent visua lization of the proximal femur. Next, a box osteotome was used to lateralize the proximal femur. A hand twister was then used to locate the femoral canal. Sequential broaching was then performed with appropriate size which afforded excellent fixation in the proximal femur. A trial was then placed with appropriate head and neck, and the hip was gently reduced with the aid of the [place] table. Fluoroscopy was then used to check position of the components, as well as to evaluate the leg lengths and offset. The leg lengths and offset were measured as closely as possible to ensure stability of the hip. The hip was then gently dislocated and the trials were then removed. Final implants were then impacted and the hip was again reduced. Final fluoroscopic x-rays confirmed that the components were in anatomic position. The leg lengths and offset were measured and were found to coincide with the trial measurements. The hip was also taken through range of motion, and found to be stable. The hip was then copiously irrigated with antibiotic solution with pulsatile lavage. The hip was then irrigated with Irrisept solution. The soft tissues were then injected with a ropivacaine solution. A second dose of 1 g of Tranexamic acid was also given intravenously. The fascia was then closed with 2-0 strata fix suture. The subcutaneous tissue was closed with 3-0 Vicryl. The subcuticular tissue was closed with 3-0 moncryl suture. The skin was then closed with Exofin skin glue. After the glue and dried, and Optifoam silver impregnated dressing was applied. The patient was then transferred to the recovery room in stable condition. The rehab assistant LUNA Busby was required due to the complexity of surgery, and the need for skilled surgical scrub technologist for positioning, draping, exposure, retraction, and closure of the wound.
--- NOTE | 2024-11-16 10:43 | P.ANPRN ---
Procedure Note - Anesthesia - Nerve Block Performed Left [place] Single Time Out Performed: Yes ([id number]) Date of Procedure: 11/16/24 Procedure Start Time: :43 Procedure Stop Time: 08:45 Location of Patient: PreOp Indication: Acute Post-Operative Pain, Requested by Surgeon Specifically requested for management of pain by DrJimenez: Arthur Barger Sedation Type: Sedate with meaningful contact maintained Preparation: Sterile Prep Position: Supine Catheter: None Needle Types: Pajunk Needle Gauge: 21 Ultrasound used to visualize needle placement: Yes Ultrasound used to observe medication spread: Yes Injectate: 0.5% Ropivacaine (see comment for volume) (30cc) Blood Aspirated: No Pain Paresthesia on Injection Noted: No Resistance on Injection: Normal Image Stored and Saved: Yes Events: Uneventful and Well Tolerated
--- NOTE | 2024-11-16 11:07 | XR ---
Intraoperative/procedural fluoroscopic services were provided for left total hip arthroplasty. Total fluoroscopy time is 23 seconds with a total of 4 submitted images to PACS. Total DAP 2.4435 Gycm2. P bertin see the operative note for further details. [facility], , 11/16/2024 11:05 AM
[2024-11-16] MEDS: HYDROmorphone 0.5 MG/0.5 ML SYRINGE IVP PRN ×2 (11:11→22:11)
--- NOTE | 2024-11-16 11:21 | XR ---
EXAMINATION TYPE: XR Hip Limited LT DATE OF EXAM: 11/16/2024 11:14 AM INDICATION: Patient age:Female; 79 years old; Reason for study: Status post hip surgery, assess surgical alignment; [facility]. COMPARISON: Left hip fluoroscopic images 11/16/2024, pelvic radiograph 04/26/2023. TECHNIQUE: The left hip was examined in the single frontal projection. FINDINGS: Postsurgical changes from left total hip arthroplasty. Hardware appears intact and appropri ately aligned on this single view. There is surrounding soft tissue and gas related to surgery. No ac sycuan fracture or dislocation. IMPRESSION: Post surgical changes from left total hip arthroplasty. Hardware appears intact with appropriate alig nment. [facility], , 11/16/2024 11:19 AM
[2024-11-16] MEDS: SODIUM CHLORIDE 0.9% 1,000 ML IV SCH (15:01)
[2024-11-16] MEDS: HYDROcodone/APAP 7.5-325MG 1 EACH TAB PO PRN (16:38)
--- NOTE | 2024-11-16 19:40 | P.HPIM ---
History of Present Illness H&P Date: 11/16/24 Patient is a 79-year-old female with past medical history of hypertension, hyperlipidemia, history of CVA/TIA, chronic kidney disease stage III, and osteoarthritis. We have been consulted for medical management of this patient. She underwent left total hip arthroplasty with direct anterior approach today (11/16). She currently denies fever, chills, nausea, vomiting, chest pain, dyspnea, abdominal pain. Review of systems: Pertinent positives and negatives as discussed in HPI, a complete review of systems was performed and all other systems are negative. Physical examination: Vital signs reviewed General: Nontoxic, no distress, appears stated age, well-appearing Derm: Warm, dry, intact Head: Atraumatic, normocephalic, symmetric Eyes: EOMI, anicteric sclera Mouth: No lip lesion, mucus membranes moist Cardiovascular: S1-S2 regular, no murmur Lungs: CTA bilateral, no rhonchi, no rales, no accessory muscle use Abdominal: Soft, non-tender to palpation Extremities: No cyanosis, clubbing, or pedal edema Neuro: Alert, oriented x 3, gross neurological examination did not reveal any focal deficits. Cranial nerves II to XII grossly intact. Psych: Appropriate affect and mood Assessment and Plan: Patient is a 79-year-old female with a past medical history significant for hypertension, hyperlipidemia, history of CVA/TIA, CKD stage III, and osteoarthritis being consulted for medical management. Chronic #. Hypertension Metoprolol 25 mg PO at bedtime #. Hyperlipidemia Lipitor 80 mg PO at bedtime #. History of CVA/TIA Eliquis 2.5 mg PO twice daily 75 mg PO daily #. Chronic kidney disease stage III Monitor BMP #. Depression/anxiety Effexor HR 225 mg PO at bedtime #. Severe osteoarthritis of the left hip, postop day 0 left total hip arthroplasty Management per orthopedic surgery Incentive spirometry F: No restrictions E: Replete as required N: Regular diet A: Weight-bear as tolerated DVT prophylaxis: Eliquis 2.5 mg PO twice daily Thank you for the consultation. We will continue to monitor her during her hospital stay. I saw and evaluated the patient during the kim and critical portions of this encounter, and discussed the case in detail with the resident author of this note, I agree with the Assessment and Plan, and my changes, if any, are highlighted in blue. Past Medical History Past Medical History: CVA/TIA, Hyperlipidemia, Hypertension, Musculoskeletal Disorder, Osteoarthritis (OA), Renal Disease Additional Past Medical History / Comment(s): Hx CVA 08/2022, no residual effects except left hand shakes sometimes. Chronic Kidney Disease Stage 3. "Extra heart per EKG." Bilateral carpal tunnel. History of Any Multi-Drug Resistant Organisms: None Reported Past Surgical History: Appendectomy, Back Surgery, Joint Replacement, Orthopedic Surgery, Tubal Ligation Additional Past Surgical History / Comment(s): Right ankle surgery, right knee partial knee replacement, then full right knee replacement, right 3rd finger pinning. Past Anesthesia/Blood Transfusion Reactions: No Reported Reaction Additional Past Anesthesia/Blood Transfusion Reaction / Comment(s): No blood transfusions. Smoking Status: Never smoker - Past Family History Father Family Medical History: Memory Impairment Additional Family Medical History / Comment(s): Alzheimers. Mother Additional Family Medical History / Comment(s): Gangrenous gallbladder, smoker, depression. Medications and Allergies Home Medications Medication Instructions Recorded Confirmed Type Metoprolol Tartrate 25 mg PO HS 11/19/18 11/16/24 History Venlafaxine HCl ER [Effexor XR] 150 mg PO HS 11/19/18 11/16/24 History Venlafaxine HCl ER [Effexor XR] 75 mg PO HS 08/17/22 11/16/24 History Atorvastatin [Lipitor] 80 mg PO HS #30 tab 08/18/22 11/16/24 Rx Cholecalciferol [Vitamin D3 (25 50 mcg PO DAILY 09/27/23 11/16/24 History Mcg = 1000 Iu)] Clopidogrel [Plavix] 75 mg PO DAILY 11/12/24 11/16/24 History Apixaban [Eliquis] 2.5 mg PO BID 30 Days #60 tab 11/16/24 Rx HYDROcodone/APAP 7.5-325MG [[place] 1 - 2 tab PO Q6H PRN #32 tab 11/16/24 Rx 7.5-325] Sennosides [Senokot] 2 tab PO DAILY PRN #60 tablet 11/16/24 Rx Allergies Allergy/AdvReac Type Severity Reaction Status Date / Time aspirin Allergy ulcers Verified 11/16/24 07:58 naproxen [From Naprosyn] Allergy ulcers Verified 11/16/24 07:[address] told Uncoded 11/16/24 07:58 her not take steroids. Physical Exam Osteopathic Statement: *. No significant issues noted on an osteopathic structural exam other than those noted in the History and Physical/Consult. Vitals: Vital Signs Temp Pulse Pulse Resp BP BP Pulse Ox 11/16/24 12:14 67 16 105/61 97 11/16/24 11:59 71 16 103/53 100 11/16/24 11:44 67 16 92/55 95 11/16/24 11:28 66 16 106/68 93 L 11/16/24 11:13 76 16 106/67 94 L 11/16/24 10:58 97 F L 78 16 121/51 94 L 11/16/24 08:52 65 18 105/54 98 11/16/24 08:08 97.8 F 79 18 158/93 95 Intake and Output 11/15/24 11/16/24 11/16/24 22:59 06:59 14:59 Intake Total 1251 Output Total 300 Balance 951 Intake: IV 1251 Output: Estimated Blood Loss 300 Thrombosis Risk Factor Assmnt - Choose All That Apply Each Factor Represents 1 point: Obesity (BMI >25) Other Risk Factors: Yes Each Risk Factor Represents 3 Points: Age 75 years or older Other congenital or acquired thrombophilia - If yes, enter type in comment: Yes Each Risk Factor Represents 5 Points: Elective major lower extremity arthoplasty Thrombosis Risk Factor Assessment Total Risk Factor Score: 9 Thrombosis Risk Factor Assessment Level: High Risk
[2024-11-16] MEDS: METOPROLOL TARTRATE 25 MG TAB PO SCH (20:09)
[2024-11-16] MEDS: SENNOSIDES-DOCUSATE SODIUM 1 EACH TAB PO SCH (20:14)
[2024-11-16] MEDS: ATORVASTATIN 80 MG TAB PO SCH (20:26)
[2024-11-16] MEDS: VENLAFAXINE HCL ER 150 MG CAP PO SCH (20:26)
[2024-11-16] MEDS: VENLAFAXINE HCL ER 75 MG CAP PO SCH (20:26)
[2024-11-17 08:55] LABS: BUN/Creat Ratio 13.38 Ratio (12.00-20.00); Blood Urea Nitrogen 17.4 mg/dL (9.0-27.0); Calcium 8.9 mg/dL (8.7-10.3); Carbon Dioxide 26.6 mmol/L (21.6-31.8); Chloride 102 mmol/L (96-109); Glucose 118 mg/dL (70-110); Magnesium 1.6 mg/dL (1.5-2.4); Potassium 4.6 mmol/L (3.5-5.5); Sodium 137 mmol/L (135-145)
[2024-11-17 09:09] LABS: Basophils # (A) 0.01 X 10*3/uL (0.00-0.10); Basophils % (A) 0.1 %; Eosinophils # (A) 0.02 X 10*3/uL (0.04-0.35); Eosinophils % (A) 0.3 %; HCT 30.8 % (37.2-46.3); HGB 9.4 g/dL (12.0-15.0); Lymphocytes # (A) 0.96 X 10*3/uL (0.90-5.00); MCHC 30.5 g/dL (32.0-37.0); MCV 98.4 FL (80.0-97.0); Mean Platelet Volume 12.4 FL (9.5-12.2); Monocytes # (A) 0.65 X 10*3/uL (0.20-1.00); Monocytes % (A) 8.8 %; NRBC Per 100 WBC 0 X 10*3/uL (0.00-0.01); Neutrophils # (A) 5.73 X 10*3/uL (1.80-7.70); Neutrophils % (A) 77.7 %; Platelet Count 139 X 10*3/uL (140-440); RBC 3.13 X 10*6/uL (4.10-5.20); RDW 12.5 % (11.5-14.5); WBC 7.38 X 10*3/uL (4.50-10.00)
[2024-11-17] MEDS: APIXABAN 2.5 MG TABLET PO SCH (10:17)
[2024-11-17] MEDS: CHOLECALCIFEROL 25 MCG (1000 IU) TABLET PO SCH (10:17)
[2024-11-17] MEDS: CLOPIDOGREL 75 MG TAB PO SCH (10:17)
[2024-11-17] MEDS: HYDROcodone/APAP 7.5-325MG 1 EACH TAB PO PRN (10:17)
--- NOTE | 2024-11-17 10:47 | P.PN ---
Subjective Progress Note Date: 11/17/24 This is a 79-year-old female who is status post left total hip arthroplasty. This is postoperative day #1 and patient is seen and evaluated at bedside today. Patient states that her pain in the left hip is well-controlled. Patient states that she does have chronic pain in the front of her left thigh and this sometimes makes her unsteady. Patient states that she has been up and walking with her walker today. Objective - Vital Signs Vital signs: Vital Signs Temp 98.9 F 11/17/24 07:12 Pulse 93 11/17/24 07:12 Resp 17 11/17/24 07:12 BP 111/70 11/17/24 07:12 Pulse Ox 95 11/17/24 07:12 FiO2 Intake & Output 11/16/24 11/17/24 11/17/24 18:59 06:59 18:59 Intake Total 1251 240 Output Total 300 Balance 951 240 Weight 67.132 kg Intake: IV 1251 Oral 240 Output: Estimated Blood Loss 300 Other: Voiding Method Toilet Diaper # Voids 1 3 - Exam Vital signs are stable. Patient is in no acute distress and is alert and oriented 3. Calf is soft and nontender to palpation. Dressing is clean, dry, and intact. Patient has full foot and ankle motion without pain or difficulty. Sensation intact. Neurovascular status and circulatory status are intact. - Labs CBC & Chem 7: 11/17/24 03:01 11/17/24 03:01 Labs: Abnormal Lab Results - Last 24 Hours (Table) 11/17/24 11/17/24 Range/Units 03:01 03:01 RBC 3.13 L (4.10-5.20) X 10*6/uL Hgb 9.4 L (12.0-15.0) g/dL Hct 30.8 L (37.2-46.3) % MCV 98.4 H (80.0-97.0) FL MCHC 30.5 L (32.0-37.0) g/dL Plt Count 139 L (140-440) X 10*3/uL MPV 12.4 H (9.5-12.2) FL Eosinophils # 0.02 L (0.04-0.35) X 10*3/uL Est GFR (CKD-EPI) 42 L (>=60) Glucose 118 H (70-110) mg/dL Assessment and Plan (1) Osteoarthritis of left hip Current Visit: Yes Status: Acute Code(s): M16.12 - UNILATERAL PRIMARY OSTEOARTHRITIS, LEFT HIP SNOMED Code(s): 293771859214539 (2) S/P total hip arthroplasty Current Visit: Yes Status: Acute Code(s): Z96.649 - PRESENCE OF UNSPECIFIED ARTIFICIAL HIP JOINT SNOMED Code(s): 175208844554 Plan: Continue routine postop care and pain control. Continue anticoagulation. Weightbearing as tolerated with a walker Leave dressing in place for 7 days. Appreciate input from internal medicine. Anticipate discharge home with homecare in the next 24-48 hours.
--- NOTE | 2024-11-17 11:45 | P.PN ---
Subjective Progress Note Date: 11/17/24 Pt c/o of left leg pain. hgb dropped 3 pts. Gen: In NAD, non-toxic HEENT: normocephalic, atraumatic, hearing acuity is intant, mucous membranes moist CVS: perfusing all extremities well, no pitting edema, Respiratory: symmetric chest expansion, no accessory muscle use, GI: soft, NTTP, ND, : no suprapubic tenderness, no CVA tenderness MSK/Derm: no rashes, cyanosis Neuro: CN II-XII intact, no motor weakness, Psych: cooperative, euthymic mood, judgment and insight is intact Assessment/plan: Patient is a 79-year-old female with a past medical history significant for hypertension, hyperlipidemia, history of CVA/TIA, CKD stage III, and osteoarthritis being consulted for medical management. #ABLA -start iron supplements -US LE non-vascular to r/o hematoma Chronic #. Hypertension Metoprolol 25 mg PO at bedtime #. Hyperlipidemia Lipitor 80 mg PO at bedtime #. History of CVA/TIA Eliquis 2.5 mg PO twice daily 75 mg PO daily #. Chronic kidney disease stage III Monitor BMP #. Depression/anxiety Effexor HR 225 mg PO at bedtime #. Severe osteoarthritis of the left hip, postop day 0 left total hip arthroplasty Management per orthopedic surgery Incentive spirometry F: No restrictions E: Replete as required N: Regular diet A: Weight-bear as tolerated DVT prophylaxis: Eliquis 2.5 mg PO twice daily Thank you for the consultation. We will continue to monitor her during her hospital stay. Objective - Vital Signs Vital signs: Vital Signs Temp 98.9 F 11/17/24 07:12 Pulse 93 11/17/24 07:12 Resp 17 11/17/24 07:12 BP 111/70 11/17/24 07:12 Pulse Ox 95 11/17/24 07:12 FiO2 Intake & Output 11/16/24 11/17/24 11/17/24 18:59 06:59 18:59 Intake Total 1251 240 Output Total 300 Balance 951 240 Weight 67.132 kg Intake: IV 1251 Oral 240 Output: Estimated Blood Loss 300 Other: Voiding Method Toilet Diaper # Voids 1 3 - Labs CBC & Chem 7: 11/17/24 03:01 11/17/24 03:01 Labs: Abnormal Lab Results - Last 24 Hours (Table) 11/17/24 11/17/24 Range/Units 03:01 03:01 RBC 3.13 L (4.10-5.20) X 10*6/uL Hgb 9.4 L (12.0-15.0) g/dL Hct 30.8 L (37.2-46.3) % MCV 98.4 H (80.0-97.0) FL MCHC 30.5 L (32.0-37.0) g/dL Plt Count 139 L (140-440) X 10*3/uL MPV 12.4 H (9.5-12.2) FL Eosinophils # 0.02 L (0.04-0.35) X 10*3/uL Est GFR (CKD-EPI) 42 L (>=60) Glucose 118 H (70-110) mg/dL
--- NOTE | 2024-11-17 12:29 | US ---
EXAMINATION TYPE: US extremity nonvasc mass LT DATE OF EXAM: 11/17/2024 COMPARISON: NONE CLINICAL INDICATION: Female, 79 years old with history of r/o hematoma of Left upper thigh, Hgb drop; TECHNIQUE: Multiple grayscale ultrasound images of the patient's left upper thigh in area of pain wer e obtained. FINDINGS/IMPRESSION: No abnormality identified. No fluid collection/hematoma visualized. [facility], , 11/17/2024 12:27 PM
[2024-11-17 14:10] LABS: HCT 29.4 % (34.0-46.0); HGB 9.4 gm/dL (11.4-16.0); Hypochromasia Slight; MCH 30.8 pg (25.0-35.0); MCV 96.4 fL (80.0-100.0); Mean Platelet Volume 8.6; Platelet Count 110 k/uL (150-450); RBC 3.05 m/uL (3.80-5.40); RDW 12.3 % (11.5-15.5); WBC 8.4 k/uL (3.8-10.6)
[2024-11-17] MEDS: FERROUS SULFATE 325 MG TAB PO SCH (15:20)
--- NOTE | 2024-11-18 07:47 | P.DS ---
Providers Expected date of discharge: 11/18/24 Attending physician: Arthur Barger Consults: 11/16/24 08:59 Consult Physician Routine Consulting Provider: Joby Bustillo Consult Reason/Comments: medical management and anticoagulation Do you want consulting provider notified?: Yes Primary care physician: Faraz Sotelo - Discharge Diagnosis(es) (1) Osteoarthritis of left hip Current Visit: Yes Status: Acute (2) S/P total hip arthroplasty Current Visit: Yes Status: Acute Hospital Course: This is a 79-year-old female with known history of degenerative arthritis of the left hip. The patient presented for evaluation as an outpatient. After discussion and consideration patient elects to proceed with total hip arthroplasty. The patient is seen preoperatively by Dr. aBrger and medically cleared for surgery by their primary care physician. Patient is admitted to [facility] on 11/16/2024 for total hip arthroplasty. The procedure is performed without complication or sequelae. The patient is doing well postoperatively. Labs and vital signs are stable on day of discharge. Patient will be on aspirin postoperatively for anticoagulation and she has also resumed Plavix. On day of discharge patient's hip incision is healing well. There is minimal erythema. There is no drainage noted at this time. There is minimal soft tissue swelling to the hip and thigh. Patient has full foot and ankle motion without difficulty or pain. Calf is soft and nontender to palpation. Neurovascular status to the left lower extremity is intact. Patient is discharged home in good condition. Please see med rec for accurate list of home medications. Plan - Discharge Summary Discharge Rx Participant: No New Discharge Prescriptions: New HYDROcodone/APAP 7.5-325MG [[place] 7.5-325] 1 - 2 tab PO Q6H PRN #32 tab PRN Reason: Pain Sennosides [Senokot] 2 tab PO DAILY PRN #60 tablet PRN Reason: Constipation No Action Metoprolol Tartrate 25 mg PO HS Venlafaxine HCl ER [Effexor XR] 150 mg PO HS Venlafaxine HCl ER [Effexor XR] 75 mg PO HS Atorvastatin [Lipitor] 80 mg PO HS #30 tab Cholecalciferol [Vitamin D3 (25 Mcg = 1000 Iu)] 50 mcg PO DAILY Clopidogrel [Plavix] 75 mg PO DAILY Discharge Medication List Metoprolol Tartrate 25 mg PO HS 12/19/18 [History] Venlafaxine HCl ER [Effexor XR] 150 mg PO HS 11/19/18 [History] Venlafaxine HCl ER [Effexor XR] 75 mg PO HS 08/17/22 [History] Atorvastatin [Lipitor] 80 mg PO HS #30 tab 08/18/22 [Rx] Cholecalciferol [Vitamin D3 (25 Mcg = 1000 Iu)] 50 mcg PO DAILY 09/27/23 [History] Clopidogrel [Plavix] 75 mg PO DAILY 11/12/24 [History] HYDROcodone/APAP 7.5-325MG [[place] 7.5-325] 1 - 2 tab PO Q6H PRN #32 tab 11/16/24 [Rx] Sennosides [Senokot] 2 tab PO DAILY PRN #60 tablet 11/16/24 [Rx] Follow up Appointment(s)/Referral(s): [facility] [NON-STAFF] - As Needed Arthur Barger DO [Doctor of Osteopathic Medicine] - 11/23/24 2:30 pm Activity/Diet/Wound Care/Special Instructions: Weightbearing as tolerated with walker. Leave dressing intact. Dressing may be removed by home care nurse or by patient in 7 days. Then change dressing twice daily until follow up. May shower with initial dressing intact and after removal. If dressing become saturated, please remove. Anticoagulation with Eliquis twice daily for 30 days postoperatively. Recommend use of compression stockings daily until follow up to help prevent swelling and blood clots. May remove at night before sleeping. [facility] with [facility] 2 weeks and call with any questions or concerns, . Discharge Disposition: HOME WITH HOME HEALTH SERVICES
[2024-11-18 10:16] VITALS: RESP 16
--- NOTE | 2024-11-18 14:27 | P.PN ---
Subjective Progress Note Date: 11/18/24 Patient is a 79-year-old female with past medical history of hypertension, hyperlipidemia, history of CVA/TIA, chronic kidney disease stage III, and osteoarthritis. We have been consulted for medical management of this patient. She underwent left total hip arthroplasty with direct anterior approach today (11/16). She currently denies fever, chills, nausea, vomiting, chest pain, dyspnea, abdominal pain. 11/18. Patient seen and examined today. No acute events overnight. No significant complaints today. No labs today. Patient pending discharge home per ortho. Review of systems: Pertinent positives and negatives as discussed in HPI, a complete review of systems was performed and all other systems are negative. Physical examination: Vital signs reviewed General: Nontoxic, no distress, appears stated age, well-appearing Derm: Warm, dry, intact Head: Atraumatic, normocephalic, symmetric Eyes: EOMI, anicteric sclera Mouth: No lip lesion, mucus membranes moist Cardiovascular: S1-S2 regular, no murmur Lungs: CTA bilateral, no rhonchi, no rales, no accessory muscle use Abdominal: Soft, non-tender to palpation Extremities: No cyanosis, clubbing, or pedal edema Neuro: Alert, oriented x 3, gross neurological examination did not reveal any focal deficits. Cranial nerves II to XII grossly intact. Psych: Appropriate affect and mood Assessment and Plan: Patient is a 79-year-old female with a past medical history significant for hypertension, hyperlipidemia, history of CVA/TIA, CKD stage III, and osteoarthritis being consulted for medical management. Chronic #. Hypertension Metoprolol 25 mg PO at bedtime #. Hyperlipidemia Lipitor 80 mg PO at bedtime #. History of CVA/TIA Plavix 75 mg PO daily Lipitor 80 mg PO daily #. Chronic kidney disease stage III, stable Monitor BMP #. Depression/anxiety Effexor HR 225 mg PO at bedtime #. Severe osteoarthritis of the left hip, postop day 2 left total hip arthroplasty #Acute blood loss anemia, anticipated outcome of surgery Defer DVT prophylaxis and pain management to orthopedic surgery Incentive spirometry F: No restrictions E: Replete as required N: Regular diet A: Weight-bear as tolerated DVT prophylaxis: Per orthopedics Patient is medically optimized for discharge. Thank you for allowing us to participate in the care of this pleasant patient. Do not hesitate to contact us with questions. Someone can be reached from the [facility] hospitalist group all hours of the day at [phone] or via perfect serve. I have seen and evaluated the patient today. Discussed with the resident and agree with the residents finding and plan as documented in the resident's note. Changes highlighted in blue font. Objective - Vital Signs Vital signs: Vital Signs Temp 99.0 F 11/18/24 04:25 Pulse 111 H 11/18/24 01:28 Resp 18 11/18/24 01:28 BP 106/61 11/18/24 01:28 Pulse Ox 92 L 11/18/24 01:28 FiO2 Intake & Output 11/17/24 11/18/24 11/18/24 18:59 06:59 18:59 Other: Voiding Method Toilet Diaper # Voids 4 4 - Labs CBC & Chem 7: 11/17/24 13:59 11/17/24 03:01 Labs: Abnormal Lab Results - Last 24 Hours (Table) 11/17/24 11/17/24 11/17/24 Range/Units 03:01 03:01 13:59 RBC 3.13 L 3.05 L (4.10-5.20) X 10*6/uL Hgb 9.4 L 9.4 L (12.0-15.0) g/dL Hct 30.8 L 29.4 L (37.2-46.3) % MCV 98.4 H (80.0-97.0) FL MCHC 30.5 L (32.0-37.0) g/dL Plt Count 139 L 110 L (140-440) X 10*3/uL MPV 12.4 H (9.5-12.2) FL Eosinophils # 0.02 L (0.04-0.35) X 10*3/uL Est GFR (CKD-EPI) 42 L (>=60) Glucose 118 H (70-110) mg/dL
[2024-11-18 15:13] VITALS: BP 106/63; PULSE 106; TEMP 98.8
== END 2024-11-18 18:03 | disposition home health service (06) ==
LOC: OR 07:47 → 4SSUR 10:44 → OR 11-18 18:03
PROVIDERS: ATTEND Orthopaedic Surgery
DX: M16.12 Unilateral primary osteoarthritis, left hip (principal); E78.5 Hyperlipidemia, unspecified; F32.A Depression, unspecified; F41.9 Anxiety disorder, unspecified; G89.18 Other acute postprocedural pain; G89.29 Other chronic pain; I12.9 Hypertensive chronic kidney disease with stage 1 through stage 4 chronic kidney disease, or unspecified chronic kidney disease; N18.30 Chronic kidney disease, stage 3 unspecified; Z79.01 Long term (current) use of anticoagulants; Z79.02 Long term (current) use of antithrombotics/antiplatelets; Z79.899 Other long term (current) drug therapy; Z86.73 Personal history of transient ischemic attack (TIA), and cerebral infarction without residual deficits; Z88.6 Allergy status to analgesic agent; Z90.49 Acquired absence of other specified parts of digestive tract; Z96.651 Presence of right artificial knee joint; Z98.51 Tubal ligation status; Z88.8 Allergy status to other drugs, medicaments and biological substances
CPT/HCPCS: 97116; 97530; 97161; 97166; 64999; 80048; 83735; 85025; 85027; 73501; 76882; 27130; C1776; J2250; J0690 ×3; J2405; J3010; J2795; J1171

== ENCOUNTER → 2025-03-03 | Outpatient (CLI) | payer MEDICARE ==
[2025-03-03 10:30] VITALS: BP 147/80; PULSE 88; RESP 16; TEMP 97.6
--- NOTE | 2025-03-03 11:50 | P.HPOB ---
History of Present Illness H&P Date: 03/03/25 Chief Complaint: Patient is here for her routine gynecologic exam. This is a 79-year-old -0-1-2 with an LMP of approximately 1995. Patient is here to establish with this office. She has not had a pelvic exam or mammogram for greater than 20 years. She developed vulvar and urethral itching and this has been intermittent for the last 2 months. She has also noticed occasional slightly yellowish, moderately thick vaginal discharge without odor. She does not notice discharge today but has within the last 2 months. She denies dysuria or urinary urgency, but she has been urinating more frequently and she attributes this to increased fluid intake. She does not give a good reason why she has not had pelvic exams or mammograms for many years, but she states that she was not having any problems, so she did not feel the need to have these types of examinations. Review of Systems The patient's weight has been stable over the last year. She denies respiratory, cardiac, or G.I. problems. : See the HPI. 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 Carpal tunnel ebonie wrists. PAST COLUMNIST HISTORY: She has no history of STDs. History of Any Multi-Drug Resistant Organisms: None Reported Past Surgical History: Appendectomy, Back Surgery, Joint Replacement, Orthopedic Surgery, Tubal Ligation Additional Past Surgical History / Comment(s): rt ankle, right knee replacement, left hip replacement, back surgery, rt 3rd finger pinning. Colonoscopy in the past. Past Anesthesia/Blood Transfusion Reactions: No Reported Reaction Additional Past Anesthesia/Blood Transfusion Reaction / Comment(s): no blood transfusions Past Psychological History: Anxiety, Depression Smoking Status: Never smoker Past Alcohol Use History: Rare (2/year) Past Drug Use History: None Reported Additional History: She has been 3 times. He has not been sexually active since about 2004. She does have a male friend, but they are not sexually active. She is retired. - Past Family History Father Family Medical History: Dementia Additional Family Medical History / Comment(s): . A paternal grandfather also had Alzheimer's. Mother Family Medical History: Hypertension Additional Family Medical History / Comment(s): Heart disease. . She denies family history of cancer of the breast, uterus, ovaries, or colon Medications and Allergies Home Medications Medication Instructions Recorded Confirmed Type Metoprolol Tartrate 25 mg PO HS 11/19/18 03/03/25 History Venlafaxine HCl ER [Effexor XR] 150 mg PO HS 11/19/18 03/03/25 History Venlafaxine HCl ER [Effexor XR] 75 mg PO HS 08/17/22 03/03/25 History Atorvastatin [Lipitor] 80 mg PO HS #30 tab 08/18/22 03/03/25 Rx Cholecalciferol [Vitamin D3 (25 50 mcg PO DAILY 09/27/23 03/03/25 History Mcg = 1000 Iu)] Clopidogrel [Plavix] 75 mg PO DAILY 11/12/24 03/03/25 History Allergies Allergy/AdvReac Type Severity Reaction Status Date / Time aspirin Allergy ulcers Verified 03/03/25 10:18 naproxen [From Naprosyn] Allergy ulcers Verified 03/03/25 10:[address] told Uncoded 03/03/25 10:18 her not take steroids. Exam Vital Signs Temp Pulse Resp BP Pulse Ox 03/03/25 10:23 97.6 F 88 16 147/80 98 Intake and Output 03/02/25 03/03/25 03/03/25 22:59 06:59 14:59 Other: Weight 67.585 kg Height 5 feet 0 inches, weight 149 pounds, BMI 29.1. This is a well-developed well-nourished white female who is alert and oriented times 3 in no acute distress. The patient has very slow ambulation and required assistance to get up on the examining table. HEENT: Within normal limits. NECK: Supple without mass or thyromegaly. CHEST AND LUNGS: Clear to auscultation. HEART: Regular rate. There are intermittent irregular beats with runs of regular beats. The patient states she has had this and this is known to her PCP. BREASTS: Are without mass or discharge. There is bilateral nipple inversion and the patient is uncertain as to how long this has been present. AXILLARY EXAM: Negative for adenopathy. BACK: Negative for CVA tenderness. ABDOMEN: Soft, nontender, without palpable masses. PELVIC EXAM: External genitalia reveals mild to moderate atrophy with mild generalized erythema without focal lesions. There is no evidence of vulvar pallor, excoriation, or ulceration. The urethral area appears normal. Cervix and vagina appear normal with mild to moderate atrophy. There is no unusual discharge. There is no evidence of prolapse. The uterus is midposition, nongravid size and nontender. There are no palpable adnexal masses or tenderness. RECTAL EXAM: Rectovaginal exam is negative for mass or tenderness and is negative for occult blood. EXTREMITIES: Nontender. IMPRESSION: 1. 79-year-old menopausal female with intermittent of vulvar irritation and itching with mild erythema on exam. This does not appear to be lichen sclerosis. 2. Slight urinary frequency. The patient attributes this to increased fluid intake which she was told to do because of her chronic kidney disease. PLAN: 1. Pap smear cotest was performed. We will continue cervical screening since she has not been seen for greater than 20 years for cervical screening. If this is negative and another 1 in 4 to 5 years is negative, we will consider discontinuing Pap smears 2. Self breast awareness was discussed with the patient. We have also discussed symptoms associated with inflammatory breast cancer. 3. Recommended a bilateral screening mammogram since she has not had this done for many years. The order slip was given to the patient for this. 4. Kenalog 0.1% cream twice daily as needed for vulvar irritation. The electronic prescription will be sent to [facility] pharmacy on [facility]. I have also recommended that she avoid over washing with soap and also try to avoid scratching and rubbing this area. She has used vinegar to the vulva because of the itching and I recommended that she discontinue this practice. 5. Urine has been obtained for urinalysis and culture with sensitivities. 6. Affirm vaginitis panel was obtained from the vagina. 7. Osteoporosis prevention was discussed. I have stressed the importance of adequate calcium, vitamin D and regular exercise. Recommended amounts of calcium and vitamin D were also discussed. She is doing a baseline bone density test today. 8. The patient was advised to return in 1-2 years for her well woman ex amination and as needed.
--- NOTE | 2025-03-03 12:59 | BD ---
EXAMINATION TYPE: Axial Bone Density DATE OF EXAM: 03/03/2025 CLINICAL HISTORY: 79 years old Female. ICD-10 CODE: Z78.0 POST MENOPAUSAL WITHOUT HRT , Additional H istory: Height: 59.2 Weight: 147 FRAX RISK QUESTIONS: History of Fracture in Adulthood: yes 3. Menopause before 45: no at age 50 RISK FACTORS HISTORY OF: rt ankle, rt hand, and rt knee replacement Sep 21, 2023 Hip Fracture : hx of left hip replacement, Nov 16 2024, bilat carpal tunnel surg 1990s Surgery to Spine for disc only MEDICATIONS: bp meds, vit d supplements, EXAM MEASUREMENTS: Bone mineral densitometry was performed using the [employer] System. Bone mineral density as measured about the Lumbar spine is: ----- L1-L4(G/cm2): 1.237 T Score Values are as follows: ----- L1: -0.3 ----- L2: 0.0 ----- L3: 1.2 ----- L4: 0.6 ----- L1-L4: 0.5 Z Score Values are as follows: ----- L1: 1.4 ----- L2: 1.7 ----- L3: 3.0 ----- L4: 2.4 ----- L1-L4: 2.2 Bone mineral density is her baseline bone density. Bone mineral density about the R hip (g/cm2): 0.833 T Score values are as follows: -----R Neck: -2.1 -----R Total: -1.4 Z Score values are as follows: -----R Neck: -0.1 -----R Total: 0.5 Bone mineral density is her first dexxa study, baseline. FRAX%s: The graph provided illustrates a 22.9% chance for a major osteoporotic fx and a 6.4% chance f or the hips probability for fx in 10 years time. IMPRESSION: Osteopenia (T Score between -2.5 and -1). There is slightly increased risk of fracture and the patient may be considered for treatment. Re-Screen 2-5 years. NOTE: T-SCORE=SD OF THE YOUNG ADULT MEAN. [facility], , 03/03/2025 12:56 PM
--- NOTE | 2025-03-03 14:24 | MM ---
Reason for Exam: Screening (asymptomatic). Patient History: Menarche at age 13. First Full-Term at age 19. Postmenopausal. Risk Values: Saba 5 year model risk: 1.2%. NCI Lifetime model risk: 2.0%. Prior Study Comparison: No prior studies available for comparison. Tissue Density: There are scattered areas of fibroglandular density. Findings: Analyzed By CAD. There is no suspicious group of microcalcifications or new suspicious mass in either breast. Overall Assessment: Benign, BI-RAD 2 Management: Screening Mammogram of both breasts in 1 year. . Patient should continue monthly self-breast exams. A clinical breast exam by your physician is recommended on an annual basis. This exam should not preclude additional follow-up of suspicious palpable abnormalities. Note on Saba scores and lifetime risk: 1. A Saba score greater than 3% is considered moderate risk. If this is the case, consider specialist referral to assess eligibility for a risk reducing agent. 2. If overall lifetime risk for the development of breast cancer is 20% or higher, the patient may qualify for future screening with alternating mammogram and breast MRI. [facility], , 03/03/2025 2:03 PM. Electronically signed and approved by: Brad Tineo M.D. Radiologis
[2025-03-04 02:00] LABS: Appearance,Urine Clear (Clear); Bilirubin,Urine Negative (Negative); Blood,Urine Negative (Negative); Color,Urine Yellow (Yellow); Ketones,Urine Negative (Negative); Nitrite,Urine Negative (Negative); PH, Urine 5.5; Specific Gravity,Urine 1.015 (1.001-1.030); Urobilinogen,Urine 0.2 E.U./DL
[2025-03-04 02:11] LABS: Bacteria,Urine None Seen (None Seen)
[2025-03-04 14:54] LABS: Gardnerella Negative (Negative); Trichomonas Negative (Negative)
--- NOTE | 2025-03-05 09:34 | P.PN ---
Progress Note - Text Progress Note Date: 03/05/25 OUTPATIENT FOLLOW-UP NOTE TEST(S)/RESULTS: Test results from 03-26 include affirm vaginitis panel negative for Iman, Gardnerella, and trichomonas. Urinalysis showed small leukocytes esterase with large numbers of squamous cells. Mammogram was benign. METHOD OF NOTIFICATION: The patient was notified by phone on 03/05/2025. PATIENT COMMENTS: DIAGNOSIS: Negative affirm vaginitis panel, urinalysis, probable contamination. Benign mammogram. DISCUSSION: We will await for the urine culture results. The patient was instructed to use the Kenalog cream as directed. PLAN: Await urine culture. As above.
== END ==
LOC: WWCWWP 09:50
PROVIDERS: ATTEND Obstetrics & Gynecology
DX: Z01.419 Encounter for gynecological examination (general) (routine) without abnormal findings (principal); Z12.31 Encounter for screening mammogram for malignant neoplasm of breast; N89.8 Other specified noninflammatory disorders of vagina; N18.30 Chronic kidney disease, stage 3 unspecified; Z88.6 Allergy status to analgesic agent; Z88.8 Allergy status to other drugs, medicaments and biological substances; Z78.0 Asymptomatic menopausal state
CPT/HCPCS: 77063; 77067; 77080; 81001; 87086; 87480; 87510; 87660